=== PATIENT | male | born 1980 | race Caucasian/White ===

== ENCOUNTER → 2017-02-20 | Outpatient (CLI) | payer MEDICAID ==
[2017-02-20 10:03] VITALS: BP 161/96; PULSE 79; RESP 16; TEMP 99.2; BMI 45.1
[2017-02-20 12:13] LABS: CH 27.8; HCT 47.3 % (39.0-53.0); HDW 2.75; HGB 16.2 gm/dL (13.0-17.5); MCH 28.1 pg (25.0-35.0); MCHC 34.2 g/dL (31.0-37.0); MCV 82.1 fL (80.0-100.0); Mean Platelet Volume 7.7; RBC 5.76 m/uL (4.30-5.90); RDW 12.8 % (11.5-15.5)
[2017-02-20 12:18] LABS: ALT 70 U/L (21-72); AST 28 U/L (17-59); Alkaline Phosphatase 81 U/L (38-126); Anion Gap 12 mmol/L; Blood Urea Nitrogen 13 mg/dL (9-20); Calcium 9.8 mg/dL (8.4-10.2); Carbon Dioxide 25 mmol/L (22-30); Chloride 105 mmol/L (98-107); Cholesterol 196 mg/dL (<200); Glucose 100 mg/dL (74-99); HDL Cholesterol 44 mg/dL (40-60); Iron 83 ug/dL (49-181); Non-African American GFR(MDRD) >60 (>60 ml/min/1.73 sqM); Potassium 4.6 mmol/L (3.5-5.1); Sodium 142 mmol/L (137-145); Total Bilirubin 0.6 mg/dL (0.2-1.3); Total Protein 7.5 g/dL (6.3-8.2)
[2017-02-20 12:27] LABS: % Iron Saturation 24.6 % (20-50); Total Iron Binding Capacity 338 ug/dL (261-462)
[2017-02-20 13:15] LABS: Vitamin B12 504 pg/mL (239-931)
[2017-02-20 18:42] LABS: Hemoglobin A1C 5.8 % (4.2-6.1)
[2017-02-24 11:38] LABS: Anabasine Urine <2.0 ng/mL (<2.0)
== END | disposition home or self-care (01) ==
LOC: BARWHC3 09:12
PROVIDERS: ATTEND Surgery Plastic and Reconstructive Surgery
DX: Z01.818 Encounter for other preprocedural examination (principal); E66.01 Morbid (severe) obesity due to excess calories; E89.1 Postprocedural hypoinsulinemia; D50.8 Other iron deficiency anemias; E44.0 Moderate protein-calorie malnutrition; E55.9 Vitamin D deficiency, unspecified; Z68.42 Body mass index [BMI] 45.0-49.9, adult; I11.9 Hypertensive heart disease without heart failure; G47.30 Sleep apnea, unspecified
CPT/HCPCS: 80053; 80061; 80323; 82306; 82607; 82728; 82746; 83036; 83540; 83550; 84425; 84443; 85027; 93005; 99201

== ENCOUNTER 2017-02-27 12:32 | Day surgery (SDC) | payer MEDICAID ==
[2017-02-25 14:26] VITALS: BMI 45.4
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
[~2017-02-27 12:32] MED LIST: LACTATED RINGERS 1,000 ML IV SCH
[2017-02-27 12:55] VITALS: RESP 16; TEMP 98.2
[2017-02-27] MEDS ORDERED: LIDOCAINE 1% 20 ML VIAL (10MG/ML) FOR IV START INTRADERMA ONE (13:10)
[2017-02-27 13:12] LABS: Glucose,Whole Blood 91 mg/dL (75-99)
[2017-02-27] MEDS ORDERED: PROPOFOL 10 MG/ML 20 ML VIAL IV ONE (13:25)
[2017-02-27] MEDS ORDERED: LIDOCAINE 1% INJ 10MG/ML (20 ML MDV) ONE (13:25)
[2017-02-27 14:03] VITALS: BP 143/97; PULSE 70
--- NOTE | 2017-02-27 14:03 | P.PCN ---
Date of Procedure: 02/27/17 Preoperative Diagnosis: Postoperative Diagnosis: Procedure(s) Performed: Implants: Indications for Procedure: Operative Findings: Description of Procedure: PREOPERATIVE DIAGNOSIS: Gastroesophageal reflux disease. Morbid obesity. POSTOPERATIVE DIAGNOSIS: Morbid obesity. Gastritis. Gastroesophageal reflux disease. Diaphragmatic hiatal hernia without obstruction. OPERATION: Esophagogastroduodenoscopy with biopsies along antrum. SURGEON: Lisy Andres MD ANESTHESIA: MAC. INDICATIONS: The patient is a 36-year-old female who presents with a history of reflux disease. Benefits and risks of the procedure were described. Informed consent was obtained. DESCRIPTION: The patient was brought into the endoscopy suite and laid in the left lateral decubitus position. An Olympus gastroscope was passed along the posterior oropharynx down to the distal esophagus where the squamocolumnar junction was encountered at 41 cm from the incisors. The stomach was entered and no bile reflux was found. Additional findings are listed below. Biopsies with cold forceps were obtained of the antrum. The first through third portion of the duodenum was examined and unremarkable. Retroflexion of the scope confirmed Hill grade 4 lower esophageal valve. The squamocolumnar junction LA grade C erosive esophagitis. The stomach was desufflated. The patient tolerated the procedure well. FINDINGS: Squamocolumnar junction 41 cm from the incisors. Diaphragmatic hiatus at 45 cm. Hiatal hernia 4 cm. Hill grade 4 lower esophageal valve. LA grade C erosive esophagitis. Superficial gastritis. No active duodenitis. RECOMMENDATIONS: Continue medical therapy. Further recommendations pending results of pathology report. Upper endoscopy as needed. Will benefit from antireflux surgical procedure Plan - Discharge Summary New Discharge Prescriptions: New Omeprazole 40 mg PO DAILY #90 capsule. No Action Varenicline [Chantix] 1 mg PO BID [facility] Discharge Medication List Omeprazole 40 mg PO AC-BRKFST 02/20/17 [History] Varenicline [Chantix] 1 mg PO BID 02/20/17 [History] Omeprazole 40 mg PO DAILY #90 capsule. 02/27/17 [Rx] Follow up Appointment(s)/Referral(s): Lisy Andres MD [STAFF PHYSICIAN] - 03/19/17 Patient Instructions/Handouts: *Surgery [facility] - (Anesthesia) Endoscopy Discharge Instructions, Upper Endoscopy (GEN), Hiatal Hernia (GEN), Gastroesophageal Reflux Disease (GEN) Discharge Disposition: HOME SELF-CARE
== END 2017-02-27 14:26 | disposition home or self-care (01) ==
LOC: ORWHC2ENDO 12:32
PROVIDERS: ATTEND Surgery Plastic and Reconstructive Surgery
DX: K21.0 Gastro-esophageal reflux disease with esophagitis (principal); K29.60 Other gastritis without bleeding; K44.9 Diaphragmatic hernia without obstruction or gangrene; E66.01 Morbid (severe) obesity due to excess calories; M19.90 Unspecified osteoarthritis, unspecified site; G47.33 Obstructive sleep apnea (adult) (pediatric); Z99.89 Dependence on other enabling machines and devices; Z79.899 Other long term (current) drug therapy; Z87.891 Personal history of nicotine dependence
CPT/HCPCS: 88305; 43239; J2001; J2704

== ENCOUNTER → 2017-02-27 | Outpatient (CLI) | payer MEDICAID ==
--- NOTE | 2017-02-27 13:11 | US ---
EXAMINATION TYPE: US gallbladder DATE OF EXAM: 02/27/2017 COMPARISON: NONE CLINICAL HISTORY: R10.11 RUQ Pain, R10.13 Epigastric Pain K80.00. RUQ and epigastric pain EXAM MEASUREMENTS: Liver Length: 17.9 cm Gallbladder Wall: 0.3 cm CBD: 0.5 cm Right Kidney: 12.5 x 5.3 x 5.2 cm Technical limitations due to patient's body habitus and large amount of overlying bowel content Pancreas: limited evaluation due to overlying bowel Liver: enlarged, attenuating, difficult to penetrate . There is coarsened, hyperechoic, and heteroge nous echotexture of the hepatic parenchyma most commonly related to hepatic steatosis, which limits e valuation for hepatic masses. Gallbladder: no evidence of stones as visualized Evidence for sonographic Renteria's sign: No CBD: appears wnl Right Kidney: no evidence of hydronephrosis or mass as visualized IMPRESSION: 1. Slightly limited exam secondary to overlying bowel gas however there is no evidence of acute mahesh cystitis or cholelithiasis. 2. Findings most compatible with hepatic steatosis, moderate in degree.
== END | disposition home or self-care (01) ==
LOC: RADUSWWP 12:06
PROVIDERS: ATTEND Surgery Plastic and Reconstructive Surgery
DX: R10.11 Right upper quadrant pain (principal); K80.20 Calculus of gallbladder without cholecystitis without obstruction
CPT/HCPCS: 76705

== ENCOUNTER → 2017-03-19 | Outpatient (CLI) | payer MEDICAID ==
[2017-03-19 14:27] VITALS: BP 160/92; PULSE 89; TEMP 98.2; BMI 44.9
--- NOTE | 2017-04-12 17:00 | P.PN ---
Progress Note - Text DATE OF CONSULTATION: 03/19/2017 REASON FOR VISIT: Morbid obesity. HISTORY OF PRESENT ILLNESS: Connor Pal is a 37-year-old gentleman who presents to the bariatric Center 1 month ago. As a result of his obesity, he had developed hypertension, prediabetes include obstructive sleep apnea. He has history of severe gastroesophageal reflux disease. He has completed both an upper and lower endoscopy. He doesn't a strong family history of gallbladder disease. He also reports fatty food intolerance. Since placement on omeprazole, his reflux disease has improved. He still pending completion of medical supervised weight loss. He is evaluating for the gastric bypass as an antireflux operation and for weight loss. At a height of 5 foot 10.25 inches, his ideal body weight is 173 pounds. Today he comes weighing 315 pounds. He has lost 2 pounds in 1 month. His body mass index is 44.9.. He is 142 pounds overweight. PAST MEDICAL HISTORY: 1. Morbid obesity. 2. Osteoarthritis of the bilateral knees. 3. Obstructive sleep apnea. 4. History of prediabetes. 5. History of lower back pain. 6. History of osteoarthritis of the bilateral ankles. 7. Previous history of closed head injury. PAST SURGICAL HISTORY: 1. Left knee ACL repair. MEDICATIONS: 1. Chantix 2. Omeprazole. ALLERGIES: Denies. SOCIAL HISTORY: Former smoker. FAMILY HISTORY: Pertinent for toxic megacolon. Has family history of esophageal cancer including gallbladder disease as well as gastroesophageal reflux disease. Has family history of hiatal hernia. History of morbid obesity. REVIEW OF SYSTEMS: CONSTITUTIONAL: No reports of fevers or chills. At a height of 5 foot 10.25 inches, his ideal body weight is 173 pounds. Today he comes weighing 317 pounds. His body mass index is 45.2. He is 163 pounds overweight. HEENT: Denies any active troubles with vision or hearing. ENDOCRINE: No reports of hypothyroidism. No reports of blood sugar glucose intolerance. RESPIRATORY: Has obstructive sleep apnea. No COPD or asthma. CARDIOVASCULAR: No reports of heart attacks or chest pain. History of hypertensive heart disease. GI: Denies any diarrhea, constipation, or blood in stools. Has severe gastroesophageal reflux disease. MUSCULOSKELETAL: Has diffuse joint pain involving the lower back, hips, knees, ankles. NEURO: No reports of seizure disorders. History of headaches. PSYCH: No reports of depression or suicidal ideation. SKIN: No skin cancers. No recent rash. HEMATOLOGIC: No family history of DVTs or pulmonary embolism. PHYSICAL EXAM: VITAL SIGNS: 5 feet 10.25 inch, 315 pounds, body mass index 44.9. Vital Signs Temp 98.2 F 03/19/17 14:38 Pulse 89 03/19/17 14:38 Resp BP 160/92 03/19/17 14:38 Pulse Ox GENERAL: Well-developed pleasant male in no acute distress. HEENT: No scleral icterus. Extraocular movements grossly intact. Moist buccal mucosa. No nasal drainage. Hears conversational speech. NECK: Supple without lymphadenopathy. No JVD distention. CHEST: Unlabored respirations with equal bilateral excursions. CARDIOVASCULAR: Regular rate and rhythm. Distal 2+ pulses. ABDOMEN: Obese, soft, nontender, nondistended. MUSCULOSKELETAL: 1+ pitting edema bilaterally. 5+/5 lower extremity strength. No clubbing or cyanosis. NEURO: No focal or lateralizing signs. Cranial nerves 2 through 12 grossly within normal limits. PSYCH: Appropriate affect. Alert and oriented to person, place and time. SKIN: Well perfused. Good skin turgor. EGD FINDINGS: Squamocolumnar junction 41 cm from the incisors. Diaphragmatic hiatus at 45 cm. Hiatal hernia 4 cm. Hill grade 4 lower esophageal valve. LA grade C erosive esophagitis. Superficial gastritis. No active duodenitis. LABS: Triglycerides were elevated at 280. Vitamin D was low 21.6. Hemoglobin A1c was normal at 5.8. Urine nicotine is negative for active tobacco. EKG: Normal sinus rhythm. US of abdomen: Results reviewed consistent with fatty liver disease. No large gallstones identified however limited study. ASSESSMENT: 1. Morbid obesity. 2. BMI 45.2 down to 44.9. 3. Tobacco cessation and counseling. 4. Gastroesophageal reflux disease. 5. Family history of gallbladder disease. 6. Family history of morbid obesity. 7. Epigastric abdominal pain. 8. Right upper quadrant abdominal pain. 9. Obstructive sleep apnea. 10. Fatty liver disease. 11. Hiatal hernia. 12. Dietary surveillance and counseling. PLAN: 1. He has a moderate size hiatal hernia and actually may benefit from repair as he symptomatic. 2. Additionally, he has fatty food intolerance and he is still at risk for chronic cholecystitis. 3. He has family history of esophageal and stomach cancer, and as a result, close vigilance post procedure is recommended. 4. He is pending completion of medical supervised weight loss. 5. Recommend limited exposure to fatty greasy foods including highly acidic foods to decrease risks of symptoms. 6. Follow-up in the [facility] May 2017.
== END ==
LOC: BARWHC3 13:52
PROVIDERS: ATTEND Surgery Plastic and Reconstructive Surgery
DX: E66.01 Morbid (severe) obesity due to excess calories (principal); K21.9 Gastro-esophageal reflux disease without esophagitis; G47.33 Obstructive sleep apnea (adult) (pediatric); K76.0 Fatty (change of) liver, not elsewhere classified; K44.9 Diaphragmatic hernia without obstruction or gangrene; Z68.41 Body mass index [BMI] 40.0-44.9, adult; Z79.899 Other long term (current) drug therapy; Z87.891 Personal history of nicotine dependence
CPT/HCPCS: 99211

== ENCOUNTER → 2017-05-19 | Outpatient (CLI) | payer MEDICAID ==
[2017-05-19 11:55] VITALS: BMI 45.0
== END | disposition home or self-care (01) ==
LOC: BARWHC3 08:53
PROVIDERS: ATTEND Surgery
DX: E66.01 Morbid (severe) obesity due to excess calories (principal)
CPT/HCPCS: 97804

== ENCOUNTER → 2017-05-21 | Outpatient (CLI) | payer MEDICAID ==
[2017-05-21 16:22] VITALS: BP 145/96; PULSE 93; RESP 16; TEMP 98; BMI 45.2
--- NOTE | 2017-07-14 20:53 | P.PN ---
Subjective Progress Note Date: 05/21/17 DATE OF SERVICE: 05/21/2017 REASON FOR VISIT: Morbid obesity. HISTORY OF PRESENT ILLNESS: Connor Pal is a 37-year-old gentleman with morbid obesity. He has developed hypertension, glucose intolerance, and obstructive sleep apnea. He has history of severe gastroesophageal reflux disease. He reports fatty food intolerance and family history of gallbladder disease. Since placement on omeprazole, his reflux disease has improved. He is evaluating for the gastric bypass as an antireflux operation and for weight loss. At a height of 5 foot 10.25 inches, his ideal body weight is 173 pounds. Today he comes weighing 317 pounds. He has gained 2 pounds in 1.5 months. His body mass index is 45.2. He is 144 pounds overweight. PAST MEDICAL HISTORY: 1. Morbid obesity. 2. Osteoarthritis of the bilateral knees. 3. Obstructive sleep apnea. 4. History of prediabetes. 5. History of lower back pain. 6. History of osteoarthritis of the bilateral ankles. 7. Previous history of closed head injury. 8. Hypertensive heart disease. PAST SURGICAL HISTORY: 1. Left knee ACL repair. 2. Esophagogastroduodenoscopy. 3. Colonoscopy. MEDICATIONS: 1. Chantix 2. Omeprazole. ALLERGIES: Denies. SOCIAL HISTORY: Former smoker. FAMILY HISTORY: Pertinent for toxic megacolon. Has family history of esophageal cancer including gallbladder disease as well as gastroesophageal reflux disease. Has family history of hiatal hernia. History of morbid obesity. REVIEW OF SYSTEMS: CONSTITUTIONAL: No reports of fevers or chills. At a height of 5 foot 10.25 inches, his ideal body weight is 173 pounds. Today he comes weighing 317 pounds. His body mass index is 45.2. He is 144 pounds overweight. HEENT: Denies any active troubles with vision or hearing. ENDOCRINE: No reports of hypothyroidism. No reports of blood sugar glucose intolerance. RESPIRATORY: Has obstructive sleep apnea. No COPD or asthma. CARDIOVASCULAR: No reports of heart attacks or chest pain. History of hypertensive heart disease. GI: Denies any diarrhea, constipation, or blood in stools. Has severe gastroesophageal reflux disease. MUSCULOSKELETAL: Has diffuse joint pain involving the lower back, hips, knees, ankles. NEURO: No reports of seizure disorders. History of headaches. PSYCH: No reports of depression or suicidal ideation. SKIN: No skin cancers. No recent rash. HEMATOLOGIC: No family history of DVTs or pulmonary embolism. PHYSICAL EXAM: VITAL SIGNS: 5 feet 10.25 inch, 317 pounds, body mass index 45.2. Vital Signs Temp 98 F 05/21/17 16:19 Pulse 93 05/21/17 16:19 Resp 16 05/21/17 16:19 BP 145/96 05/21/17 16:19 Pulse Ox GENERAL: Well-developed pleasant male in no acute distress. HEENT: No scleral icterus. Extraocular movements grossly intact. Moist buccal mucosa. No nasal drainage. Hears conversational speech. NECK: Supple without lymphadenopathy. No JVD distention. CHEST: Unlabored respirations with equal bilateral excursions. CARDIOVASCULAR: Regular rate and rhythm. Distal 2+ pulses. ABDOMEN: Obese, soft, nontender, nondistended. MUSCULOSKELETAL: 5+/5 lower extremity strength. No clubbing or cyanosis. NEURO: No focal or lateralizing signs. Cranial nerves 2 through 12 grossly within normal limits. PSYCH: Appropriate affect. Alert and oriented to person, place and time. SKIN: Well perfused. Good skin turgor. EGD FINDINGS: Squamocolumnar junction 41 cm from the incisors. Diaphragmatic hiatus at 45 cm. Hiatal hernia 4 cm. Hill grade 4 lower esophageal valve. LA grade C erosive esophagitis. LABS: Triglycerides were elevated at 280. Vitamin D was low 21.6. Hemoglobin A1c was normal at 5.8. Urine nicotine is negative for active tobacco. EKG: Normal sinus rhythm. US of abdomen: Results reviewed consistent with fatty liver disease. No large gallstones identified however limited study. ASSESSMENT: 1. Morbid obesity. 2. BMI 45.2 3. Hypertensive heart disease. 4. Gastroesophageal reflux disease. 5. Family history of gallbladder disease. 6. Family history of morbid obesity. 7. Epigastric abdominal pain. 8. Right upper quadrant abdominal pain. 9. Obstructive sleep apnea. 10. Fatty liver disease. 11. Hiatal hernia. 12. Dietary surveillance and counseling. 13. Chronic cholecystitis. PLAN: 1. Recommend continue with omeprazole for esophageal reflux disease. 2. Recommend 2 week protein diet for fatty liver disease. 3. The [place] bariatric surgical collaborative data was reviewed in detail including benefits and risks between band, bypass, sleeve gastrectomy. 4. Recommend cholecystectomy at the time of her bariatric procedure. 5. A second generation bariatric consent form was reviewed in detail including leaks, bleeding, nutritional deficiencies and need for additional procedures. 6. Inpatient hospitalization more than 2 nights. 7. DVT prophylaxis. 8. Antibiotic prophylaxis. Objective - Vital Signs Vital signs: Vital Signs Temp 98 F 05/21/17 16:19 Pulse 93 05/21/17 16:19 Resp 16 05/21/17 16:19 BP 145/96 05/21/17 16:19 Pulse Ox Intake & Output 05/20/17 05/21/17 05/21/17 18:59 06:59 18:59 Weight 144.016 kg
== END | disposition home or self-care (01) ==
LOC: BARWHC3 15:40
PROVIDERS: ATTEND Surgery Plastic and Reconstructive Surgery
DX: E66.01 Morbid (severe) obesity due to excess calories (principal); I11.9 Hypertensive heart disease without heart failure; K21.9 Gastro-esophageal reflux disease without esophagitis; G47.33 Obstructive sleep apnea (adult) (pediatric); K76.0 Fatty (change of) liver, not elsewhere classified; K81.1 Chronic cholecystitis; Z71.3 Dietary counseling and surveillance; Z68.42 Body mass index [BMI] 45.0-49.9, adult; Z87.891 Personal history of nicotine dependence; Z98.890 Other specified postprocedural states
CPT/HCPCS: 99211

== ENCOUNTER → 2017-09-03 | Outpatient (CLI) | payer MEDICAID ==
[2017-09-03 16:42] VITALS: BP 139/86; PULSE 76; RESP 16; TEMP 98.4; BMI 44.2
--- NOTE | 2017-11-06 16:23 | P.PN ---
Subjective Progress Note Date: 09/03/17 DATE OF SERVICE: 09/03/2017 REASON FOR VISIT: Morbid obesity HISTORY OF PRESENT ILLNESS: Connor Pal is a 37-year-old gentleman with morbid obesity. As a result of his obesity, he has developed sleep apnea, osteoarthritis and hypertensive heart disease. He initially complained of severe gastroesophageal reflux disease. He reports resolution of his gastroesophageal reflux disease. He also reports intolerance to fatty foods. He comes in for evaluation for the gastric bypass. At a height of 5 foot 10.25 inches, his ideal body weight is 173 pounds. Today he comes weighing 310 pounds. He has lost 7 pounds in 3 months. His body mass index is reduced from 45.2 to 44.2. He is 147 pounds overweight. PAST MEDICAL HISTORY: 1. Morbid obesity. 2. Osteoarthritis of the bilateral knees. 3. Obstructive sleep apnea. 4. History of prediabetes. 5. History of lower back pain. 6. History of osteoarthritis of the bilateral ankles. 7. Previous history of closed head injury. 8. Hypertensive heart disease. PAST SURGICAL HISTORY: 1. Left knee ACL repair. 2. Esophagogastroduodenoscopy. 3. Colonoscopy. MEDICATIONS: 1. Chantix 2. Omeprazole. ALLERGIES: Denies. SOCIAL HISTORY: Former smoker. FAMILY HISTORY: Pertinent for toxic megacolon. Has family history of esophageal cancer including gallbladder disease as well as gastroesophageal reflux disease. Has family history of hiatal hernia. History of morbid obesity. REVIEW OF SYSTEMS: CONSTITUTIONAL: No reports of fevers or chills. At a height of 5 foot 10.25 inches, his ideal body weight is 173 pounds. Today he comes weighing 308 pounds. He has lost 7 pounds in 3 months. His body mass index is reduced from 45.2 to 44.2. He is 147 pounds overweight. HEENT: Denies any active troubles with vision or hearing. ENDOCRINE: No reports of hypothyroidism. No reports of blood sugar glucose intolerance. RESPIRATORY: Has obstructive sleep apnea. No COPD or asthma. CARDIOVASCULAR: No reports of heart attacks or chest pain. History of hypertensive heart disease. GI: Denies any diarrhea, constipation, or blood in stools. Has severe gastroesophageal reflux disease now improved with weight loss. Reports fatty food intolerance. MUSCULOSKELETAL: Has diffuse joint pain involving the lower back, hips, knees, ankles. NEURO: No reports of seizure disorders. History of headaches. PSYCH: No reports of depression or suicidal ideation. SKIN: No skin cancers. No recent rash. HEMATOLOGIC: No family history of DVTs or pulmonary embolism. PHYSICAL EXAM: VITAL SIGNS: 5 feet 10.25 inch, 310 pounds, body mass index 45.2. Vital Signs Temp 98.4 F 09/03/17 16:39 Pulse 76 09/03/17 16:39 Resp 16 09/03/17 16:39 BP 139/86 09/03/17 16:39 Pulse Ox GENERAL: Well-developed pleasant male in no acute distress. HEENT: No scleral icterus. Extraocular movements grossly intact. Moist buccal mucosa. No nasal drainage. Hears conversational speech. NECK: Supple without lymphadenopathy. No JVD distention. CHEST: Unlabored respirations with equal bilateral excursions. CARDIOVASCULAR: Regular rate and rhythm. Distal 2+ pulses. ABDOMEN: Obese, soft, nontender, nondistended. MUSCULOSKELETAL: 5+/5 lower extremity strength. No clubbing or cyanosis. NEURO: No focal or lateralizing signs. Cranial nerves 2 through 12 grossly within normal limits. PSYCH: Appropriate affect. Alert and oriented to person, place and time. SKIN: Well perfused. Good skin turgor. ASSESSMENT: 1. Morbid obesity. 2. BMI 45.2 down to 44.2 3. Hypertensive heart disease. 4. Gastroesophageal reflux disease, improved. 5. Family history of gallbladder disease. 6. Family history of morbid obesity. 7. Epigastric abdominal pain. 8. Right upper quadrant abdominal pain. 9. Obstructive sleep apnea. 10. Fatty liver disease. 11. Hiatal hernia. 12. Dietary surveillance and counseling. 13. Chronic cholecystitis. PLAN: 1. Bariatric options between a sleeve, band and a Dorcas-en-Y gastric bypass were reviewed in detail. He elected for a bypass versus possible sleeve gastrectomy. Robotic assisted approach described. 2. The [place] [facility] Collabor[facility] Data was also reviewed with benefits and risks as described. 3. An 8 page second-generation bariatric consent form was reviewed in detail including potential of bleeding, infection, leaks, adequate weight loss, nutritional deficiencies which he demonstrated understanding of the risks. 4. A 2 week high-protein low caloric 800 kcal diet described to address hepatomegaly. 5. Preoperative labs including complete metabolic panel and CBC with type and screen recommended. 6. DVT prophylaxis per [place] bariatric surgery collaborative. 7. Antibiotic prophylaxis. 8. Inpatient hospitalization anticipated for more than 2 nights. 9. All questions and concerns were addressed with the patient. 10. Recommended dietary classes. 11. Possible cholecystectomy was also described should he develop acute cholecystitis. Objective - Vital Signs Vital signs: Vital Signs Temp 98.4 F 09/03/17 16:39 Pulse 76 09/03/17 16:39 Resp 16 09/03/17 16:39 BP 139/86 09/03/17 16:39 Pulse Ox Intake & Output 09/02/17 09/03/17 09/03/17 18:59 06:59 18:59 Weight 140.812 kg
== END | disposition home or self-care (01) ==
LOC: BARWHC3 15:47
PROVIDERS: ATTEND Surgery Plastic and Reconstructive Surgery
DX: E66.01 Morbid (severe) obesity due to excess calories (principal); I11.9 Hypertensive heart disease without heart failure; I50.9 Heart failure, unspecified; K21.9 Gastro-esophageal reflux disease without esophagitis; Z83.79 Family history of other diseases of the digestive system; Z84.89 Family history of other specified conditions; R10.13 Epigastric pain; R10.11 Right upper quadrant pain; G47.33 Obstructive sleep apnea (adult) (pediatric); K76.0 Fatty (change of) liver, not elsewhere classified; K44.9 Diaphragmatic hernia without obstruction or gangrene; Z71.3 Dietary counseling and surveillance; K81.1 Chronic cholecystitis; Z68.41 Body mass index [BMI] 40.0-44.9, adult; Z87.891 Personal history of nicotine dependence; Z79.899 Other long term (current) drug therapy
CPT/HCPCS: 99211

== ENCOUNTER → 2017-09-24 | Outpatient (CLI) | payer MEDICAID ==
[2017-09-24 14:09] LABS: Basophils % (A) 1 %; Eosinophils # (A) 0.1 k/uL (0-0.7); Eosinophils % (A) 2 %; HCT 46.4 % (39.0-53.0); HGB 15.7 gm/dL (13.0-17.5); Lymphocytes % (A) 28 %; MCH 27.3 pg (25.0-35.0); MCHC 33.9 g/dL (31.0-37.0); MCV 80.5 fL (80.0-100.0); Mean Platelet Volume 7.8; Monocytes # (A) 0.4 k/uL (0-1.0); Monocytes % (A) 5 %; Neutrophils # (A) 4.4 k/uL (1.3-7.7); Neutrophils % (A) 62 %; Platelet Count 201 k/uL (150-450); RBC 5.76 m/uL (4.30-5.90); RDW 13.1 % (11.5-15.5); WBC 7.1 k/uL (3.8-10.6)
[2017-09-24 14:35] LABS: ALT 75 U/L (21-72); AST 38 U/L (17-59); Albumin 4.6 g/dL (3.5-5.0); Alkaline Phosphatase 73 U/L (38-126); Anion Gap 12 mmol/L; Blood Urea Nitrogen 22 mg/dL (9-20); Calcium 9.9 mg/dL (8.4-10.2); Carbon Dioxide 29 mmol/L (22-30); Chloride 100 mmol/L (98-107); Glucose 96 mg/dL (74-99); Potassium 3.9 mmol/L (3.5-5.1); Sodium 141 mmol/L (137-145); Total Bilirubin 0.5 mg/dL (0.2-1.3); Total Protein 7.4 g/dL (6.3-8.2)
== END | disposition home or self-care (01) ==
LOC: LABPAT 13:33
PROVIDERS: ATTEND Surgery Plastic and Reconstructive Surgery
DX: Z01.812 Encounter for preprocedural laboratory examination (principal); I10 Essential (primary) hypertension
CPT/HCPCS: 36415; 80053; 85025

== ENCOUNTER 2017-10-01 12:51 | Inpatient (IN) | payer MEDICAID ==
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
[~2017-10-01 12:51] MED LIST changes: +CHLORHEXIDINE GLUCONATE 15 ML CUP MUCOUS MEM ONE; +ENOXAPARIN 40 MG/0.4 ML SYRINGE SQ STA; +HYDROmorphone 0.5 MG/0.5 ML SYRINGE IVP PRN; -LACTATED RINGERS 1,000 ML IV SCH; +ONDANSETRON 4 MG/2 ML VIAL IVP PRN; +PANTOPRAZOLE 40 MG/10 ML VIAL IV STA; +SCOPOLAMINE 1.5MG/72HR PATCH TRANSDERM SCH
[2017-10-01 13:58] LABS: Glucose,Whole Blood 90 mg/dL (75-99)
[2017-10-01] MEDS: LACTATED RINGERS 1,000 ML IV SCH ×2 (14:00→20:42)
[2017-10-01] MEDS ORDERED: LIDOCAINE 1% 20 ML VIAL (10MG/ML) FOR IV START INTRADERMA ONE ×2 (14:01)
[2017-10-01] MEDS ORDERED: DEXAMETHASONE SOD PHOSPHATE 10 MG/ML 1 ML VIAL IV ONE (14:03)
[2017-10-01] MEDS ORDERED: PROPOFOL 10 MG/ML 20 ML VIAL IV ONE (16:23)
[2017-10-01] MEDS ORDERED: MIDAZOLAM 2 MG/2 ML VIAL ONE (16:23)
[2017-10-01] MEDS ORDERED: fentaNYL (PF) 50 MCG/ML 2 ML AMP ONE (16:23)
[2017-10-01] MEDS ORDERED: ROCURONIUM BROMIDE 10 MG/ML 10 ML VIAL IV ONE (16:23)
[2017-10-01] MEDS ORDERED: NEOSTIGMINE 1 MG/ML 10 ML VIAL ONE (16:23)
[2017-10-01] MEDS ORDERED: SUCCINYLCHOLINE CHLORIDE VIAL 200 MG/10 ML VIAL IV ONE (16:23)
[2017-10-01] MEDS ORDERED: HYDROmorphone (PF) 1 MG/ML ONE (16:23)
[2017-10-01] MEDS ORDERED: LIDOCAINE 1% INJ 10MG/ML (20 ML MDV) ONE (16:23)
[2017-10-01] MEDS ORDERED: GLYCOPYRROLATE 0.2 MG/ML 2 ML VIAL ONE (16:23)
[2017-10-01] MEDS ORDERED: BUPIVACAINE (PF) 0.25% 30 ML VIAL SQ ONE (16:49)
[2017-10-01] MEDS ORDERED: LACTATED RINGERS 1,000 ML IV ONE (18:21)
[2017-10-01] MEDS ORDERED: NALOXONE 0.4 MG/ML 1 ML VIAL IV PRN (18:40)
[2017-10-01] MEDS ORDERED: HYDROcodone/APAP 15 ML SOLUTION PO PRN (18:40)
[2017-10-01] MEDS ORDERED: ONDANSETRON 4 MG/2 ML VIAL IVP PRN (18:40)
[2017-10-01] MEDS ORDERED: diphenhydrAMINE 50 MG/ML 1 ML VIAL IVP PRN (18:40)
--- NOTE | 2017-10-01 18:40 | P.PCN ---
Date of Procedure: 10/01/17 Preoperative Diagnosis: Morbid obesity Postoperative Diagnosis: Same Procedure(s) Performed: Robotic sleeve gastrectomy, 40-Irish bougie Anesthesia: GETA, local Surgeon: Lisy Andres Estimated Blood Loss (ml): 10 Pathology: other (Sleeve gastrectomy) Condition: stable Disposition: floor Description of Procedure: 1. Stomach 30cm x 6 cm 2. Total of 8 - 45 mm krzysztof: 2 blues, 6 greens. 3. Negative leak test. 4. Console time 56 minutes
--- NOTE | 2017-10-01 18:54 | P.OP ---
Date of Procedure: 10/01/17 Description of Procedure: SURGEON: KWAME LANDIS MD STENCIL INSPECTOR: 1. CONNIE DUKE PREOPERATIVE DIAGNOSES: 1. Morbid obesity. 2. BMI 45.2 to 41.9. 3. Hypertensive heart disease. 4. Gastroesophageal reflux disease. 5. Family history of gallbladder disease. 6. Family history of morbid obesity. 7. Obstructive sleep apnea. 8. Fatty liver disease. 9. Hiatal hernia. 10. Dietary surveillance and counseling. POSTOPERATIVE DIAGNOSES: 1. Morbid obesity. 2. BMI 45.2 to 41.9. 3. Hypertensive heart disease. 4. Gastroesophageal reflux disease. 5. Family history of gallbladder disease. 6. Family history of morbid obesity. 7. Obstructive sleep apnea. 8. Fatty liver disease. 9. Hiatal hernia. 10. Dietary surveillance and counseling. OPERATION: 1. Robotic assisted daVinci Xi laparoscopic sleeve gastrectomy with 40-Mauritanian bougie, multiport. 2. Intraoperative esophagogastroduodenoscopy. ANESTHESIA: Gen. local anesthetic ESTIMATED BLOOD LOSS: 10 mL SPECIMENS REMOVED: Sleeve gastrectomy COMPLICATIONS: None. INDICATIONS: Connor Pal is a 37-year-old gentleman with morbid obesity. He has developed hypertension, glucose intolerance, and obstructive sleep apnea. He has history of severe gastroesophageal reflux disease now improved the last 4 months. He reports fatty food intolerance and family history of gallbladder disease. Since placement on omeprazole, his reflux disease has improved. He is evaluating for the sleeve gastrectomy despite his history of reflux. At a height of 5 foot 10.25 inches, his ideal body weight is 173 pounds. Today he comes after 22 pound weight loss from 317 pounds to 293 pounds. His body mass index was 45.2. All surgical options for morbid obesity had been described using the [place] bariatric surgery collaborative comorbidity resolution including complication risk score. A second-generation bariatric consent form was described in detail including the possibility of protein malnutrition, leaks , gastrojejunal stricture, venous thrombosis, gastroesophageal reflux disease, need for further surgery for which she demonstrated understanding. Benefits and risks of the procedure were described at length. Informed consent was obtained. DESCRIPTION: The patient was brought into the operating room theater. He was placed on a split leg table. Preoperatively he had received Lovenox subcutaneously for DVT prophylaxis. Additionally he had Peridex oral solution as an oral decontaminant. After general induction, the abdomen was prepped and draped in standard sterile fashion. The patient had previously voided prior to coming to the operating room. An Ioban draping was placed along the abdomen. Herr catheter was avoided. A robotic da Abimael Xi system was prepped and primed. The xiphoid to umbilicus measured 18 cm. At 15 cm from the xiphoid, proposed port sites were marked with indelible marker along the anterior axillary line bilaterally, mid axillary line bilaterally with each ports were marked 10 to 15 cm from each other. The carpenter assistant installer port was marked along the left lateral abdominal wall. The robotic stapler port was marked for the right midclavicular line. A 5 mm 0 degrees laparoscopic trocar entry was performed along the left upper quadrant. The abdomen was insufflated to 15 mmHg pressure he tolerated well. Diagnostic laparoscopy demonstrated no injury to bowel, viscera, or mesentery. The liver surface was unremarkable. The liver edge was slightly round consistent with fatty liver disease. No injury had occurred to the small bowel or viscera. Along the hiatus no evidence of large prominent hiatal hernia was encountered. A 12 mm port was placed along the left upper abdominal wall after exchanging the 5 mm port. A separate 8 mm port was placed along the left lateral abdominal wall. Please note that the ports were placed at least 20 cm away from the target anatomy. Care was taken to check each robotic arms were safely away from collision with the bed or the patient. At the epigastrium, a median sized Bonnie liver retractor was placed under direct visualization with the Iron Escalator Operator placed under the right shoulder of the patient. Next, 12-mm robot stapler port was placed along the right upper quadrant. The camera 8-mm port was maintained along the epigastrium, The patient was repositioned in reverse Trendelenburg position at 14-degrees after lowering the bed. The robot was docked along the left side of the patient. Using a grasper for arm 3, a veseel sealer for arm 2, including grasper for arm 1, the robotic system was docked and primed as described. Instruments were interchanged by the carpenter assistant installer for stapler loads. The camera was placed at 30-degrees down. I had sat at the console. The pylorus was identified and 6 cm proximally along the greater curvature of the stomach, the short gastrics were mobilized upwards to the angle of His using a vessel sealer. Hemostasis was excellent during this portion of the procedure. Next, the upper pole of the stomach was adherent to the left claire, which was gently dissected free using atraumatic grasper. Moderate redundancy of the posterior upper pole of the stomach was identified. The nursing machine try out setter placed a 40-Mauritanian blunted bougie into the stomach. Robotic stapler green loads 45 mm x 6, followed by blue 45 mm x 2 loads were used to create the sleeve. Initial firing was across the antrum of the stomach towards the angle of His. The staple line was completely hemostatic and linear without corkscrewing. Hemostasis was excellent. The space from the angularis incisura of the sleeve was approximately 4 cm. I then went to the head of the bed to perform the intraoperative esophagogastroduodenoscopy leak test. The upper pole of the stomach was bathed using normal saline solution. The scope was withdrawn with careful inspection along the staple line for which no leaks were found along the entire length. Additionally, the sleeve was completely hemostatic without any encroachment along the angularis incisura. Its topology was a straight tube. No stricture was encountered upon placement of the scope. The GI tract was desufflated. The patient tolerated this portion of the procedure well. The scope was completely withdrawn. The robot was undocked. I then rescrubbed into case, whereby the irrigation fluid was aspirated from the abdominal cavity. Tisseel fibrin sealant was placed along the entire staple length. Once dried the Bonnie liver retractor was removed. Attention was now brought to removal of the specimen. The distal end of the sleeve gastrectomy specimen was brought out through the 12 mm port at the left upper quadrant. The specimen was gently removed en total , corresponding to 30 cm x 6 cm sleeve gastrectomy specimen. No contamination had occurred during this process. All instruments and pneumoperitoneum including irrigation fluid was removed from the abdominal cavity. The 12 mm port site was irrigated with warm normal saline solution and diluted hydron peroxide. The 12-mm port site was reapproximated using 0 Vicryl and Oscar-Evie of the left upper quadrant. The final incisions were closed using subcuticular interrupted suture of 4-0 Monocryl. Dermabond was applied to the skin once the skin had been cleansed. OptiFoam dressing was placed along the stomach extraction site. At the end of the procedure, needle, sponge, and instrument count was verified correct by the surgical tech. The patient was taken to the postanesthesia care unit in stable condition. He had tolerated the procedure well. Intraoperative films and findings were reviewed with the patient's family. FINDINGS: 1. Negative intraoperative esophagogastrojejunoscopy leak test. 2. No hepatomegaly or large hiatus hernia. 3. Total of 8 staplers used including 6 - 45 mm green robot krzysztof and 2 - 45 mm blue robot loads used to create the gastric sleeve. 4. Xiphoid to umbilicus of 18 cm. 5. Moderate redundant upper posterior pole of the stomach.
[2017-10-01] MEDS: fentaNYL (PF) 50 MCG/ML 2 ML AMP IVP ONE ×2 (19:08→19:17)
[2017-10-01] MEDS ORDERED: ACETAMINOPHEN IV (For NPO) 1,000 MG in EMPTY BAG 1 BAG IVPB ONE (19:30)
[2017-10-01] MEDS: MORPHINE SULFATE/PF 10MG/10ML VL IVP PRN (20:22)
[2017-10-01] MEDS: 0.9% NACL WITH KCL 20 MEQ/L 1,000 ML IV SCH (21:53)
[2017-10-01] MEDS: ALBUTEROL NEBULIZED 2.5 MG/3 ML INHALATION SCH (23:35)
[2017-10-02] MEDS: AMPICILLIN-SULBACTAM 3 GM in SODIUM CHLORIDE 0.9% 100 ML IVPB SCH ×2 (00:34→05:36)
[2017-10-02] MEDS: SIMETHICONE 40 MG/0.6 ML DROPS 2,000 MG/30 ML BOTTLE PO SCH ×2 (00:35→05:36)
[2017-10-02] MEDS: HYOSCYAMINE ORAL DROPS 1.875 MG/15 ML BOTTLE PO SCH ×2 (00:35→05:36)
[2017-10-02] MEDS: METOCLOPRAMIDE 5 MG/ML 2 ML VIAL IVP SCH ×2 (00:58→05:35)
[2017-10-02] MEDS: MORPHINE SULFATE/PF 10MG/10ML VL IVP PRN ×2 (00:59→05:36)
[2017-10-02] MEDS: 0.9% NACL WITH KCL 20 MEQ/L 1,000 ML IV SCH (04:45)
[2017-10-02 06:49] LABS: Basophils % (A) 0 %; Eosinophils % (A) 0 %; HCT 41.7 % (39.0-53.0); HGB 14.5 gm/dL (13.0-17.5); Lymphocytes # (A) 1.2 k/uL (1.0-4.8); Lymphocytes % (A) 11 %; MCH 27.9 pg (25.0-35.0); MCHC 34.9 g/dL (31.0-37.0); MCV 79.9 fL (80.0-100.0); Mean Platelet Volume 7.4; Monocytes # (A) 0.7 k/uL (0-1.0); Monocytes % (A) 7 %; Neutrophils # (A) 8.6 k/uL (1.3-7.7); Neutrophils % (A) 79 %; Platelet Count 244 k/uL (150-450); RBC 5.22 m/uL (4.30-5.90); RDW 13.2 % (11.5-15.5); WBC 10.8 k/uL (3.8-10.6)
[2017-10-02 07:19] LABS: Anion Gap 12 mmol/L; Blood Urea Nitrogen 15 mg/dL (9-20); Calcium 8.7 mg/dL (8.4-10.2); Carbon Dioxide 22 mmol/L (22-30); Chloride 106 mmol/L (98-107); Magnesium 1.8 mg/dL (1.6-2.3); Phosphorus 3.2 mg/dL (2.5-4.5); Potassium 3.6 mmol/L (3.5-5.1); Sodium 140 mmol/L (137-145)
[2017-10-02 07:58] VITALS: BP 116/58; TEMP 98.5
[2017-10-02] MEDS ORDERED: 1: MVI, ADULT NO.4 WITH VIT K 10 ML, THIAMINE 100 MG, FOLIC ACID 1 MG, POTASSIUM CHLORID IV SCH ×6 (08:00)
[2017-10-02 08:08] VITALS: RESP 18
[2017-10-02] MEDS: ALBUTEROL NEBULIZED 2.5 MG/3 ML INHALATION SCH (08:11)
[2017-10-02 08:19] VITALS: PULSE 98
[2017-10-02] MEDS ORDERED: ENOXAPARIN 40 MG/0.4 ML SYRINGE SQ SCH (09:00)
[2017-10-02] MEDS ORDERED: PANTOPRAZOLE 40 MG/10 ML VIAL IV SCH (09:00)
[2017-10-02] MEDS ORDERED: HYDROCHLOROTHIAZIDE 25 MG TAB PO SCH (09:00)
--- NOTE | 2017-10-02 09:03 | FL ---
EXAMINATION TYPE: FL UGI DATE OF EXAM: 10/02/2017 LIMITED UGI: CLINICAL HISTORY: That is post gastric sleeve. TECHNIQUE: Limited esophagram is performed utilizing 100 mL oz of Omnipaque 350. A total of 1.1 oziel te of fluoroscopic time was utilized during procedure. 42 fluoroscopic images were saved. COMPARISON: None. FINDINGS: The patient swallowed contrast without difficulty or delay. Esophageal peristalsis and mo tility are within normal limits. There is good flow of contrast along the diaphragmatic hiatus into proximal stomach and subsequent flow into gastric sleeve. There is good flow from distal sleeve into pylorus and duodenal sweep. Patient remains asymptomatic. There is no evidence of contrast extravasat ion to suggest leak. IMPRESSION: No evidence of leak or significant obstruction status post recent gastric sleeve surgery.
--- NOTE | 2017-10-02 09:54 | P.PN ---
Subjective Progress Note Date: 10/02/17 DATE OF SERVICE: 10/01/2017 HISTORY OF PRESENT ILLNESS: Connor Pal is a 37-year-old gentleman s/p sleeve gastrectomy. "I feel very good." No nausea, vomiting, or reflux! Pain is well controlled. Objective - Vital Signs Vital signs: Vital Signs Temp 98.5 F 10/02/17 07:57 Pulse 98 10/02/17 08:19 Resp 18 10/02/17 08:07 BP 116/58 10/02/17 07:57 Pulse Ox 94 L 10/02/17 08:39 Intake & Output 10/01/17 10/02/17 10/02/17 18:59 06:59 18:59 Intake Total 1700 3141 0 Output Total 10 450 Balance 1690 2691 0 Weight 133.3 kg Intake: IV 1700 150 Intake, IV Titration 2991 Amount 0.9% NaCl with KCl 20 Meq 2282 /l 1,000 ml @ 150 mls/hr IV .Q6H40M [facility] Rx#: [id number] ACETAMINOPHEN IV (For NPO 100 ) 1,000 mg In Empty Bag 1 bag @ 400 mls/hr IVPB ONCE ONE Rx#:[id number] Ampicillin-Sulbactam 3 gm 200 In Sodium Chloride 0.9% 100 ml @ 100 mls/hr IVPB Q6HR [facility] Rx#:[id number] Lactated Ringers 1,000 ml 409 As IV .STK-MED ONE Rx#: [id number] Oral 0 Output: Urine 450 Estimated Blood Loss 10 Other: Voiding Method Urinal Toilet Urinal # Voids 1 - Exam PHYSICAL EXAM: GENERAL: Well-developed pleasant male in no acute distress. HEENT: No scleral icterus. Extraocular movements grossly intact. Moist buccal mucosa. No nasal drainage. Hears conversational speech. NECK: Supple without lymphadenopathy. No JVD distention. CHEST: Unlabored respirations with equal bilateral excursions. CARDIOVASCULAR: Regular rate and rhythm. Distal 2+ pulses. ABDOMEN: Obese, soft, nontender, nondistended. Dressings clean, dry, and intact. MUSCULOSKELETAL: 5+/5 lower extremity strength. No clubbing or cyanosis. NEURO: No focal or lateralizing signs. Cranial nerves 2 through 12 grossly within normal limits. PSYCH: Appropriate affect. Alert and oriented to person, place and time. SKIN: Well perfused. Good skin turgor. - Labs CBC & Chem 7: 10/02/17 06:24 10/02/17 06:24 Labs: Abnormal Lab Results - Last 24 Hours (Table) 10/02/17 Range/Units 06:24 WBC 10.8 H (3.8-10.6) k/uL MCV 79.9 L (80.0-100.0) fL Neutrophils # 8.6 H (1.3-7.7) k/uL Assessment and Plan (1) BMI 40.0-44.9, adult Current Visit: Yes Status: Acute Code(s): Z68.41 - BODY MASS INDEX (BMI) 40.0-44.9, ADULT SNOMED Code(s): 496146281 (2) Sleep apnea Current Visit: Yes Status: Acute Code(s): G47.30 - SLEEP APNEA, UNSPECIFIED SNOMED Code(s): 84355556 (3) Hypertension Current Visit: Yes Status: Acute Code(s): I10 - ESSENTIAL (PRIMARY) HYPERTENSION SNOMED Code(s): 94795586 (4) Gastroesophageal reflux Current Visit: Yes Status: Acute Code(s): K21.9 - GASTRO-ESOPHAGEAL REFLUX DISEASE WITHOUT ESOPHAGITIS SNOMED Code(s): 352315019 (5) Morbid obesity Current Visit: Yes Status: Acute Code(s): E66.01 - MORBID (SEVERE) OBESITY DUE TO EXCESS CALORIES SNOMED Code(s): 000697066 Plan: ASSESSMENT: 1. Morbid obesity. 2. BMI 45.2 3. Hypertensive heart disease. 4. Gastroesophageal reflux disease. 5. Family history of gallbladder disease. 6. Family history of morbid obesity. 7. Epigastric abdominal pain. 8. Right upper quadrant abdominal pain. 9. Obstructive sleep apnea. 10. Fatty liver disease. 11. Hiatal hernia. 12. Dietary surveillance and counseling. PLAN: 1. Discharge home after diet. 2. Follow-up in bariatric center in 24 hrs. 3. Post discharge instructions reviewed.
--- NOTE | 2017-10-02 10:04 | P.DS ---
Providers Date of admission: 10/01/17 12:51 Expected date of discharge: 10/02/17 Attending physician: Lisy Andres Primary care physician: Stated None - Discharge Diagnosis(es) (1) BMI 40.0-44.9, adult Current Visit: Yes Status: Acute (2) Sleep apnea Current Visit: Yes Status: Acute (3) Hypertension Current Visit: Yes Status: Acute (4) Gastroesophageal reflux Current Visit: Yes Status: Acute (5) Morbid obesity Current Visit: Yes Status: Acute Hospital Course: POSTOPERATIVE DIAGNOSES: 1. Morbid obesity. 2. BMI 45.2 to 41.9. 3. Hypertensive heart disease. 4. Gastroesophageal reflux disease. 5. Family history of gallbladder disease. 6. Family history of morbid obesity. 7. Obstructive sleep apnea. 8. Fatty liver disease. 9. Hiatal hernia. 10. Dietary surveillance and counseling. COURSE: Connor Pal is a 37-year-old gentleman with morbid obesity. He has developed hypertension, glucose intolerance, and obstructive sleep apnea. He has history of severe gastroesophageal reflux disease now improved the last 4 months. He reports fatty food intolerance and family history of gallbladder disease. Since placement on omeprazole, his reflux disease has improved. He is evaluating for the sleeve gastrectomy despite his history of reflux. At a height of 5 foot 10.25 inches, his ideal body weight is 173 pounds. Today he comes after 22 pound weight loss from 317 pounds to 293 pounds. His body mass index was 45.2. All surgical options for morbid obesity had been described using the [place] bariatric surgery collaborative comorbidity resolution including complication risk score. A second-generation bariatric consent form was described in detail including the possibility of protein malnutrition, leaks , gastrojejunal stricture, venous thrombosis, gastroesophageal reflux disease, need for further surgery for which she demonstrated understanding. Post-procedure, his pain was well controlled. No reports of reflux and he was tolerating diet. Follow-up in the bariatric center in 24 hrs with discharge instructions reviewed. Pertinent Studies: Esophogram reviewed and without leaks Procedures: OPERATION: 1. Robotic assisted daVinci Xi laparoscopic sleeve gastrectomy with 40-Albanian bougie, multiport. 2. Intraoperative esophagogastroduodenoscopy. ANESTHESIA: Gen. local anesthetic ESTIMATED BLOOD LOSS: 10 mL SPECIMENS REMOVED: Sleeve gastrectomy COMPLICATIONS: None. Patient Condition at Discharge: Good Plan - Discharge Summary Discharge Rx Participant: Yes New Discharge Prescriptions: New Bisacodyl [Dulcolax] 5 mg PO DAILY PRN #10 tablet. PRN Reason: Constipation HYDROcodone/APAP [[place] Elixir 7.5-325Mg/15Ml] 15 ml PO Q6H PRN #480 solution PRN Reason: Pain Ondansetron Odt [Zofran Odt] 4 mg PO Q8HR PRN #9 tab PRN Reason: Nausea Simethicone 40 mg/0.6 ml Drops [Mylicon Drops] 40 mg PO PCHS PRN #30 ml PRN Reason: Gas No Action Omeprazole 40 mg PO AC-BRKFST Hydrochlorothiazide 25 mg PO DAILY Discharge Medication List Omeprazole 40 mg PO AC-BRKFST 02/20/17 [History] Hydrochlorothiazide 25 mg PO DAILY 05/22/17 [History] Bisacodyl [Dulcolax] 5 mg PO DAILY PRN #10 tablet. 10/02/17 [Rx] HYDROcodone/APAP [[place] Elixir 7.5-325Mg/15Ml] 15 ml PO Q6H PRN #480 solution [Rx] Ondansetron Odt [Zofran Odt] 4 mg PO Q8HR PRN #9 tab 10/02/17 [Rx] Simethicone 40 mg/0.6 ml Drops [Mylicon Drops] 40 mg PO PCHS PRN #30 ml [Rx] Follow up Appointment(s)/Referral(s): Bariatric Center,. [NON-STAFF] - 10/03/17 10:00 am Patient Instructions/Handouts: Nutrition after Bariatric Surgery (DC), Laparoscopic Sleeve Gastrectomy (DC) Activity/Diet/Wound Care/Special Instructions: No lifting over 4 pounds in 4 weeks. May shower. No bathtub soaks. Take omeprazole daily. Start protein shakes, October 04. Discharge Disposition: HOME SELF-CARE
[2017-10-02 10:11] VITALS: BMI 41.8
[2017-10-03] MEDS ORDERED: BISACODYL 5 MG TABLET.DR PO PRN (08:00)
== END 2017-10-02 11:30 | disposition home or self-care (01) | DRG 621 ==
LOC: 2ORMAIN 12:51 → 3SUR 19:02
PROVIDERS: ADMIT Surgery Plastic and Reconstructive Surgery; ATTEND Surgery Plastic and Reconstructive Surgery
PROC: 8E0W4CZ Robotic Assisted Procedure of Trunk Region, Percutaneous Endoscopic Approach (ICD-10-PCS; 2017-10-01)
PROC: 0DJ08ZZ Inspection of Upper Intestinal Tract, Via Natural or Artificial Opening Endoscopic (ICD-10-PCS; 2017-10-01)
PROC: 0DB64Z3 Excision of Stomach, Percutaneous Endoscopic Approach, Vertical (ICD-10-PCS; principal; 2017-10-01 15:10)
DX: E66.01 Morbid (severe) obesity due to excess calories (principal); I11.9 Hypertensive heart disease without heart failure; K76.0 Fatty (change of) liver, not elsewhere classified; E74.39 Other disorders of intestinal carbohydrate absorption; Z68.41 Body mass index [BMI] 40.0-44.9, adult; G47.33 Obstructive sleep apnea (adult) (pediatric); K21.9 Gastro-esophageal reflux disease without esophagitis; K44.9 Diaphragmatic hernia without obstruction or gangrene; M19.071 Primary osteoarthritis, right ankle and foot; M19.072 Primary osteoarthritis, left ankle and foot; M17.0 Bilateral primary osteoarthritis of knee; M54.5 Low back pain; R73.03 Prediabetes; Z71.3 Dietary counseling and surveillance; Z79.899 Other long term (current) drug therapy; Z87.891 Personal history of nicotine dependence; Z87.820 Personal history of traumatic brain injury; Z83.49 Family history of other endocrine, nutritional and metabolic diseases
CPT/HCPCS: 74240; 80051; 82310; 82565; 83735; 84100; 84520; 85025; 86850; 86900; 86901; 88307; 94640; 94760

== ENCOUNTER → 2017-10-03 | Outpatient (CLI) | payer MEDICAID ==
[2017-10-03 10:27] VITALS: BP 151/90; PULSE 74; TEMP 97.6; BMI 41.8
--- NOTE | 2017-11-07 15:57 | P.PN ---
Subjective Progress Note Date: 10/03/17 DATE OF SERVICE: 10/03/2017 REASON FOR VISIT: Status post sleeve gastrectomy HISTORY OF PRESENT ILLNESS: Connor Pal is a 37-year-old gentleman with morbid obesity. He status post sleeve gastrectomy 10/01/2017. He is postoperative day 2. No pain. No reflux. Doing well. He is tolerating liquids and diet. He is passing flatus. No fevers or chills. At a height of 5 foot 10.25 inches, his ideal body weight is 173 pounds. Highest weight 317 pounds. Today he comes in 293 pounds. He has lost 17 pounds in 1 month. His body mass index is reduced from 45.2 to 41.8. Lifetime weight loss is 24 pounds. Percent excess weight is 17%. He is 120 pounds overweight. PHYSICAL EXAM: VITAL SIGNS: 5 feet 10.25 inch, 293 pounds, body mass index 41.8. Vital Signs Temp 97.6 F 10/03/17 10:21 Pulse 74 10/03/17 10:21 Resp BP 151/90 10/03/17 10:21 Pulse Ox GENERAL: Well-developed pleasant male in no acute distress. HEENT: No scleral icterus. Extraocular movements grossly intact. Moist buccal mucosa. No nasal drainage. Hears conversational speech. NECK: Supple without lymphadenopathy. No JVD distention. CHEST: Unlabored respirations with equal bilateral excursions. CARDIOVASCULAR: Regular rate and rhythm. Distal 2+ pulses. ABDOMEN: Obese, soft, nontender, nondistended. Dressing discontinued. No cellulitis or infection. MUSCULOSKELETAL: 5+/5 lower extremity strength. No clubbing or cyanosis. NEURO: No focal or lateralizing signs. Cranial nerves 2 through 12 grossly within normal limits. PSYCH: Appropriate affect. Alert and oriented to person, place and time. SKIN: Well perfused. Good skin turgor. ASSESSMENT: 1. Morbid obesity. 2. BMI 45.2 down to 41.8. 3. Hypertensive heart disease. 4. Gastroesophageal reflux disease, improved. 5. Status post sleeve gastrectomy PLAN: 1. He is doing very well. Fluid intake 64 ounces daily. 2. Start protein shakes 75 g daily. 3. Follow-up in 2 weeks.
== END | disposition home or self-care (01) ==
LOC: BARWHC3 09:50
PROVIDERS: ATTEND Surgery Plastic and Reconstructive Surgery
DX: Z48.815 Encounter for surgical aftercare following surgery on the digestive system (principal); E66.01 Morbid (severe) obesity due to excess calories; Z68.41 Body mass index [BMI] 40.0-44.9, adult; I11.9 Hypertensive heart disease without heart failure; I50.9 Heart failure, unspecified; K21.9 Gastro-esophageal reflux disease without esophagitis; Z98.84 Bariatric surgery status
CPT/HCPCS: 99211

== ENCOUNTER → 2017-10-15 | Outpatient (CLI) | payer MEDICAID ==
[2017-10-15 16:56] VITALS: BP 122/79; PULSE 89; RESP 16; TEMP 98; BMI 39.6
--- NOTE | 2017-11-08 18:38 | P.PN ---
Subjective Progress Note Date: 10/15/17 DATE OF SERVICE: 10/15/2017 REASON FOR VISIT: Status post sleeve gastrectomy HISTORY OF PRESENT ILLNESS: Connor Pal is a 37-year-old gentleman with morbid obesity. He status post sleeve gastrectomy 10/01/2017. He is 2 weeks out. Reports mild pain along the pretibia of the left leg. Otherwise he is feeling great. He denies any esophageal reflux disease. Separately, he reports swelling along the right groin. He has no right upper quadrant abdominal pain. "I am happy with my weight loss." At a height of 5 foot 10.25 inches, his ideal body weight is 173 pounds. Highest weight 317 pounds. Today he comes in 278 pounds. He has lost 15 pounds since his last visit 2 weeks ago. His body mass index is reduced from 45.2 to 39.7. Lifetime weight loss is 39 pounds. Percent excess weight is 27% . He is 105 pounds overweight. PHYSICAL EXAM: VITAL SIGNS: 5 feet 10.25 inch, 278 pounds, body mass index 39.7. Vital Signs Temp 98 F 10/15/17 16:53 Pulse 89 10/15/17 16:53 Resp 16 10/15/17 16:53 BP 122/79 10/15/17 16:53 Pulse Ox GENERAL: Well-developed pleasant male in no acute distress. HEENT: No scleral icterus. Extraocular movements grossly intact. Moist buccal mucosa. No nasal drainage. Hears conversational speech. NECK: Supple without lymphadenopathy. No JVD distention. CHEST: Unlabored respirations with equal bilateral excursions. CARDIOVASCULAR: Regular rate and rhythm. Distal 2+ pulses. ABDOMEN: Obese, soft, nontender, nondistended. Dressing discontinued. No cellulitis or infection. MUSCULOSKELETAL: No clubbing or cyanosis. No edema. Tenderness along the pretibial area of the left lower leg. No calf tenderness. NEURO: No focal or lateralizing signs. Cranial nerves 2 through 12 grossly within normal limits. PSYCH: Appropriate affect. Alert and oriented to person, place and time. SKIN: Well perfused. Good skin turgor. ASSESSMENT: 1. Morbid obesity. 2. BMI 45.2 down to 39.7. 3. Hypertensive heart disease. 4. Gastroesophageal reflux disease, improved. 5. Status post sleeve gastrectomy 6. Obstructive sleep apnea, resolved 7. Left leg pain PLAN: 1. Recommend ultrasound of the left lower leg for DVT evaluation. 2. Follow-up 1 month postprocedure. 3. Bariatric stage II diet. Objective - Vital Signs Vital signs: Vital Signs Temp 98 F 10/15/17 16:53 Pulse 89 10/15/17 16:53 Resp 16 10/15/17 16:53 BP 122/79 10/15/17 16:53 Pulse Ox Intake & Output 10/14/17 10/15/17 10/15/17 18:59 06:59 18:59 Weight 126.354 kg
== END | disposition home or self-care (01) ==
LOC: BARWHC3 15:55
PROVIDERS: ATTEND Surgery Plastic and Reconstructive Surgery
DX: Z48.815 Encounter for surgical aftercare following surgery on the digestive system (principal); E66.01 Morbid (severe) obesity due to excess calories; I11.9 Hypertensive heart disease without heart failure; K21.9 Gastro-esophageal reflux disease without esophagitis; M79.605 Pain in left leg; E21.1 Secondary hyperparathyroidism, not elsewhere classified; D50.9 Iron deficiency anemia, unspecified; E89.1 Postprocedural hypoinsulinemia; E44.0 Moderate protein-calorie malnutrition; E55.9 Vitamin D deficiency, unspecified; K74.1 Hepatic sclerosis; N19 Unspecified kidney failure; K50.90 Crohn's disease, unspecified, without complications; Z98.84 Bariatric surgery status; Z68.39 Body mass index [BMI] 39.0-39.9, adult
CPT/HCPCS: 97803; 99211

== ENCOUNTER → 2017-11-12 | Outpatient (CLI) | payer MEDICAID ==
[2017-11-12 16:51] VITALS: BP 131/88; PULSE 98; RESP 16; TEMP 98; BMI 36.8
--- NOTE | 2017-11-12 18:23 | P.PN ---
Subjective Progress Note Date: 11/12/17 DATE OF SERVICE: 11/12/2017 REASON FOR VISIT: Status post sleeve gastrectomy HISTORY OF PRESENT ILLNESS: Connor Pal is a 37-year-old gentleman with morbid obesity. He status post sleeve gastrectomy 10/01/2017. He reports pain along the left shoulder. Patient was last seen 10/15/2017. He is 1 month out. At a height of 5 foot 10.25 inches, his ideal body weight is 173 pounds. Highest weight 317 pounds. Today he comes in 258 pounds. He has lost 20 pounds since his last visit 1 month ago. His body mass index is reduced from 45.3 to 36.9. Lifetime weight loss is 59 pounds. Percent excess weight is 41 % . He is 85 pounds overweight. PHYSICAL EXAM: VITAL SIGNS: 5 feet 10.25 inch, 258 pounds, body mass index 36.9. Vital Signs Temp 98 F 11/12/17 16:48 Pulse 98 11/12/17 16:48 Resp 16 11/12/17 16:48 BP 131/88 11/12/17 16:48 Pulse Ox Intake & Output 11/11/17 11/12/17 11/12/17 18:59 06:59 18:59 Weight 117.48 kg GENERAL: Well-developed pleasant male in no acute distress. HEENT: No scleral icterus. Extraocular movements grossly intact. Moist buccal mucosa. No nasal drainage. Hears conversational speech. NECK: Supple without lymphadenopathy. No JVD distention. CHEST: Unlabored respirations with equal bilateral excursions. CARDIOVASCULAR: Regular rate and rhythm. Distal 2+ pulses. ABDOMEN: Obese, soft, nontender, nondistended. Dressing discontinued. No cellulitis or infection. MUSCULOSKELETAL: No clubbing or cyanosis. No edema. Tenderness along the pretibial area of the left lower leg. No calf tenderness. NEURO: No focal or lateralizing signs. Cranial nerves 2 through 12 grossly within normal limits. PSYCH: Appropriate affect. Alert and oriented to person, place and time. SKIN: Well perfused. Good skin turgor. ASSESSMENT: 1. Morbid obesity due to excess calories 2. BMI 45.2 down to 36.9 3. Hypertensive heart disease. 4. Gastroesophageal reflux disease, improved. 5. Status post sleeve gastrectomy 6. Obstructive sleep apnea, resolved 7. Left shoulder. PLAN: 1. Went over labs. 2. Recommend iron with multivitamin. 3. Take Vitamin C based foods with diet. 4. Follow up in December 2017. 5. Vitamin D supplement advised. 6. He is off all weight lifting restrictions. Objective - Vital Signs Vital signs: Vital Signs Temp 98 F 11/12/17 16:48 Pulse 98 11/12/17 16:48 Resp 16 11/12/17 16:48 BP 131/88 11/12/17 16:48 Pulse Ox Intake & Output 11/11/17 11/12/17 11/12/17 18:59 06:59 18:59 Weight 117.48 kg
== END | disposition home or self-care (01) ==
LOC: BARWHC3 16:39
PROVIDERS: ATTEND Surgery Plastic and Reconstructive Surgery
DX: Z48.815 Encounter for surgical aftercare following surgery on the digestive system (principal); E66.01 Morbid (severe) obesity due to excess calories; I11.9 Hypertensive heart disease without heart failure; K21.9 Gastro-esophageal reflux disease without esophagitis; M79.605 Pain in left leg; Z71.3 Dietary counseling and surveillance; Z98.84 Bariatric surgery status; Z68.36 Body mass index [BMI] 36.0-36.9, adult
CPT/HCPCS: 97803; 99211

== ENCOUNTER → 2017-11-14 | Outpatient (CLI) | payer MEDICAID ==
--- NOTE | 2017-11-14 13:47 | XR ---
EXAMINATION TYPE: XR chest 2V DATE OF EXAM: 11/14/2017 COMPARISON: NONE HISTORY: Left-sided back and chest pain. TECHNIQUE: Frontal and lateral views of the chest are obtained. FINDINGS: There is no focal air space opacity, pleural effusion, or pneumothorax seen. The cardiac silhouette size is within normal limits. The osseous structures are intact. IMPRESSION: No acute cardiopulmonary process.
== END | disposition home or self-care (01) ==
LOC: RADXRMAIN 13:23
PROVIDERS: ATTEND Surgery Plastic and Reconstructive Surgery
DX: R07.9 Chest pain, unspecified (principal); R06.02 Shortness of breath
CPT/HCPCS: 71046

== ENCOUNTER → 2018-01-21 | Outpatient (CLI) | payer MEDICAID ==
--- NOTE | 2018-01-21 13:41 | P.PN ---
Subjective Progress Note Date: 01/21/18 HPI: He comes in with occasional feeling of fainting. He also reports spontaneous sweating. Lost over 85 pounds. Overall, he has full family support. He reports occassional GERD not as severe as before. He is 4 months out. He is off blood pressure medications. His bowel movements are 2 to 3 days. PLAN: 1. Teaching of gallbladder symptoms were reviewed. 2. He is happy with his loss fitting clothes. 3. He is due for labs. 4. Omeprazole for GERD.
[2018-01-21 13:46] VITALS: BP 147/85; PULSE 88; RESP 14; TEMP 98.3; BMI 32.6
[2018-01-21 14:56] LABS: HGB 14.7 gm/dL (13.0-17.5); MCH 28.1 pg (25.0-35.0); MCHC 33.4 g/dL (31.0-37.0); MCV 84.2 fL (80.0-100.0); Mean Platelet Volume 7.2; Platelet Count 221 k/uL (150-450); RBC 5.23 m/uL (4.30-5.90); RDW 13.9 % (11.5-15.5); WBC 6.1 k/uL (3.8-10.6)
[2018-01-21 15:04] LABS: Partial Thromboplastin Time 23.9 sec (22.0-30.0); Prothrombin Time 10.2 sec (9.0-12.0)
[2018-01-21 15:35] LABS: ALT 32 U/L (21-72); AST 20 U/L (17-59); Albumin 4.5 g/dL (3.5-5.0); Alkaline Phosphatase 68 U/L (38-126); Anion Gap 12 mmol/L; Blood Urea Nitrogen 12 mg/dL (9-20); Calcium 9.7 mg/dL (8.4-10.2); Carbon Dioxide 26 mmol/L (22-30); Chloride 103 mmol/L (98-107); Cholesterol 171 mg/dL (<200); Glucose 91 mg/dL (74-99); HDL Cholesterol 44 mg/dL (40-60); LDL Cholesterol,Calculated 106 mg/dL (0-99); Magnesium 1.9 mg/dL (1.6-2.3); Phosphorus 3.7 mg/dL (2.5-4.5); Potassium 4.8 mmol/L (3.5-5.1); Sodium 141 mmol/L (137-145); Total Bilirubin 0.9 mg/dL (0.2-1.3); Total Protein 6.9 g/dL (6.3-8.2); Triglycerides 104 mg/dL (<150)
[2018-01-21 20:01] LABS: Parathyroid Hormone Intact 55.6 pg/mL (14.0-72.0)
[2018-01-21 20:52] LABS: Iron Saturation 17.9 (15.00-50.00)
[2018-01-21 20:57] LABS: Vitamin D 25 Hydroxy 34.3 ng/mL (30.0-100.0)
[2018-01-22 02:46] LABS: Hemoglobin A1C 5.1 % (4.0-6.0)
[2018-01-22 12:03] LABS: Zinc, Serum 79 ug/dL (60-130)
[2018-01-23 05:59] LABS: Vitamin A 45 ug/dL (38-106)
[2018-01-23 12:08] LABS: Vitamin B1 72 ug/L (38-122)
[2018-01-23 17:26] LABS: Selenium 129 mcg/L (63-160)
== END | disposition home or self-care (01) ==
LOC: BARWHC3 12:58
PROVIDERS: ATTEND Surgery Plastic and Reconstructive Surgery
DX: R61 Generalized hyperhidrosis (principal); E66.01 Morbid (severe) obesity due to excess calories; E21.1 Secondary hyperparathyroidism, not elsewhere classified; E89.1 Postprocedural hypoinsulinemia; D50.9 Iron deficiency anemia, unspecified; K90.9 Intestinal malabsorption, unspecified; E55.9 Vitamin D deficiency, unspecified; K76.9 Liver disease, unspecified; N19 Unspecified kidney failure; K50.90 Crohn's disease, unspecified, without complications
CPT/HCPCS: 36415; 80053; 80061; 82306; 82525; 82607; 82728; 82746; 83036; 83540; 83550; 83735; 83970; 84100; 84134; 84255; 84425; 84443; 84590; 84630; 85027; 85610; 85730; 97803; 99211

== ENCOUNTER → 2018-03-18 | Outpatient (CLI) | payer MEDICAID ==
[2018-03-18 14:53] VITALS: BP 132/75; PULSE 70; RESP 16; TEMP 98.4; BMI 31.1
--- NOTE | 2018-03-18 14:54 | P.PN ---
Subjective Progress Note Date: 03/18/18 HPI: He reports when he overeats he gets the shakes. He reports GERD but not severe. He has constipation. His weight loss is slowing down. He reports occasional constipation. ABDOMEN: Soft, tender at the right upper quadrant. PLAN: 1. Cholecystectomy described. 2. Labs reviewed.
[2018-03-18 15:35] LABS: HCT 44.5 % (39.0-53.0); HGB 14.4 gm/dL (13.0-17.5); MCH 27.4 pg (25.0-35.0); MCHC 32.3 g/dL (31.0-37.0); MCV 84.8 fL (80.0-100.0); Mean Platelet Volume 7.6; Platelet Count 200 k/uL (150-450); RBC 5.25 m/uL (4.30-5.90); RDW 13.2 % (11.5-15.5); WBC 6.4 k/uL (3.8-10.6)
[2018-03-18 15:37] LABS: Partial Thromboplastin Time 23.9 sec (22.0-30.0); Prothrombin Time 10.1 sec (9.0-12.0)
[2018-03-18 15:43] LABS: ALT 30 U/L (21-72); AST 20 U/L (17-59); Albumin 4.4 g/dL (3.5-5.0); Alkaline Phosphatase 65 U/L (38-126); Anion Gap 9 mmol/L; Blood Urea Nitrogen 11 mg/dL (9-20); Calcium 9.5 mg/dL (8.4-10.2); Carbon Dioxide 25 mmol/L (22-30); Chloride 107 mmol/L (98-107); Cholesterol 173 mg/dL (<200); Glucose 89 mg/dL (74-99); HDL Cholesterol 45 mg/dL (40-60); LDL Cholesterol,Calculated 100 mg/dL (0-99); Phosphorus 3.8 mg/dL (2.5-4.5); Potassium 4.5 mmol/L (3.5-5.1); Sodium 141 mmol/L (137-145); Total Bilirubin 0.7 mg/dL (0.2-1.3); Triglycerides 139 mg/dL (<150)
[2018-03-18 22:21] LABS: Hemoglobin A1C 5.5 % (4.0-6.0)
[2018-03-18 23:07] LABS: Iron Saturation 24.25 (15.00-50.00)
[2018-03-18 23:14] LABS: Vitamin D 25 Hydroxy 31.2 ng/mL (30.0-100.0)
[2018-03-19 00:02] LABS: Parathyroid Hormone Intact 59.4 pg/mL (14.0-72.0)
[2018-03-19 13:20] LABS: Zinc, Serum 82 ug/dL (60-130)
[2018-03-20 06:06] LABS: Vitamin A 53 ug/dL (38-106)
[2018-03-20 08:05] LABS: Vitamin B1 59 ug/L (38-122)
[2018-03-20 17:20] LABS: Selenium 142 mcg/L (63-160)
== END | disposition home or self-care (01) ==
LOC: BARWHC3 13:42
PROVIDERS: ATTEND Surgery Plastic and Reconstructive Surgery
DX: E66.01 Morbid (severe) obesity due to excess calories (principal); E21.1 Secondary hyperparathyroidism, not elsewhere classified; D50.9 Iron deficiency anemia, unspecified; E44.0 Moderate protein-calorie malnutrition; K90.9 Intestinal malabsorption, unspecified; E55.9 Vitamin D deficiency, unspecified; K74.1 Hepatic sclerosis; N19 Unspecified kidney failure; K50.90 Crohn's disease, unspecified, without complications
CPT/HCPCS: 36415; 80053; 80061; 82306; 82525; 82607; 82728; 82746; 83036; 83540; 83550; 83735; 83970; 84100; 84134; 84255; 84425; 84443; 84590; 84630; 85027; 85610; 85730; 97803; 99211

== ENCOUNTER → 2018-07-01 | Outpatient (CLI) | payer MEDICAID ==
--- NOTE | 2018-07-01 16:54 | P.PN ---
Subjective Progress Note Date: 07/01/18 HPI: Has troubles with pasta. Wants more weight loss. He notices decreased GERD. Will check for gallstones and US Recommend fiber 25 g Probiotics for bowel movements
[2018-07-01 17:10] VITALS: BP 122/79; PULSE 76; TEMP 97.8; BMI 30.3
== END | disposition home or self-care (01) ==
LOC: BARWHC3 15:44
PROVIDERS: ATTEND Surgery Plastic and Reconstructive Surgery
DX: K21.9 Gastro-esophageal reflux disease without esophagitis (principal); E66.01 Morbid (severe) obesity due to excess calories; Z79.899 Other long term (current) drug therapy; Z68.30 Body mass index [BMI] 30.0-30.9, adult
CPT/HCPCS: 97803; 99211

== ENCOUNTER → 2018-07-01 | Outpatient (CLI) | payer MEDICAID | END | disposition home or self-care (01) | LOC: BARWHC3 15:44 | PROVIDERS: ATTEND Surgery Plastic and Reconstructive Surgery | DX: Z53.9 Procedure and treatment not carried out, unspecified reason (principal) | CPT/HCPCS: 97803 ==

== ENCOUNTER → 2018-07-17 | Outpatient (CLI) | payer MEDICAID ==
--- NOTE | 2018-07-17 07:29 | US ---
EXAMINATION TYPE: US abdomen limited DATE OF EXAM: 07/17/2018 COMPARISON: US CLINICAL HISTORY: R10.11 ABD.PAIN,GALLSTONES. Pt states ABD pain EXAM MEASUREMENTS: Liver Length: 15.5 cm Gallbladder Wall: 0.3 cm CBD: 0.4 cm Right Kidney: 11.5 x 4.5 x 5.1 cm Pancreas: Obscured by bowel gas Liver: wnl Gallbladder: wnl Evidence for sonographic Renteria's sign: No CBD: wnl Right Kidney: wnl IMPRESSION: No abnormality visualized to account for pt's symptoms
[2018-07-17 08:01] LABS: HCT 42.9 % (39.0-53.0); MCH 27.2 pg (25.0-35.0); MCHC 32.6 g/dL (31.0-37.0); MCV 83.5 fL (80.0-100.0); Mean Platelet Volume 6.9; Platelet Count 178 k/uL (150-450); RBC 5.14 m/uL (4.30-5.90); WBC 6.3 k/uL (3.8-10.6)
[2018-07-17 08:03] LABS: Partial Thromboplastin Time 24.7 sec (22.0-30.0); Prothrombin Time 10.3 sec (9.0-12.0)
[2018-07-17 08:17] LABS: ALT 47 U/L (21-72); AST 50 U/L (17-59); Albumin 4.2 g/dL (3.5-5.0); Alkaline Phosphatase 65 U/L (38-126); Anion Gap 5 mmol/L; Blood Urea Nitrogen 14 mg/dL (9-20); Calcium 9.5 mg/dL (8.4-10.2); Carbon Dioxide 28 mmol/L (22-30); Chloride 109 mmol/L (98-107); Cholesterol 149 mg/dL (<200); Glucose 93 mg/dL (74-99); HDL Cholesterol 44 mg/dL (40-60); LDL Cholesterol,Calculated 83 mg/dL (0-99); Magnesium 1.9 mg/dL (1.6-2.3); Phosphorus 4.1 mg/dL (2.5-4.5); Potassium 4.6 mmol/L (3.5-5.1); Sodium 142 mmol/L (137-145); Total Bilirubin 0.9 mg/dL (0.2-1.3); Total Protein 6.9 g/dL (6.3-8.2); Triglycerides 108 mg/dL (<150)
[2018-07-17 14:12] LABS: Hemoglobin A1C 5.4 % (4.0-6.0)
[2018-07-17 15:48] LABS: Iron Saturation 26.97 (15.00-50.00)
[2018-07-17 15:57] LABS: Vitamin D 25 Hydroxy 22.6 ng/mL (30.0-100.0)
[2018-07-17 15:59] LABS: Folate, Serum 22.6 ng/mL
[2018-07-20 13:54] LABS: Zinc, Serum 100 ug/dL (60-130)
[2018-07-21 06:46] LABS: Vitamin A 60 ug/dL (38-106)
[2018-07-21 07:39] LABS: Vitamin B1 78 ug/L (38-122)
== END | disposition home or self-care (01) ==
LOC: RADUSWWP 06:56
PROVIDERS: ATTEND Surgery Plastic and Reconstructive Surgery
DX: R10.11 Right upper quadrant pain (principal); E21.1 Secondary hyperparathyroidism, not elsewhere classified; E89.1 Postprocedural hypoinsulinemia; D50.9 Iron deficiency anemia, unspecified; E44.0 Moderate protein-calorie malnutrition; E55.9 Vitamin D deficiency, unspecified; K74.1 Hepatic sclerosis; N19 Unspecified kidney failure; K50.90 Crohn's disease, unspecified, without complications; E66.01 Morbid (severe) obesity due to excess calories
CPT/HCPCS: 36415; 76705; 80053; 80061; 82306; 82525; 82607; 82728; 82746; 83036; 83540; 83550; 83735; 83970; 84100; 84134; 84255; 84425; 84443; 84590; 84630; 85027; 85610; 85730

== ENCOUNTER → 2018-09-30 | Outpatient (CLI) | payer MEDICAID ==
--- NOTE | 2018-09-30 18:01 | P.PN ---
Subjective Progress Note Date: 09/30/18 HPI: He reports GERD. He has indigestion with fatty milk. He is 1 year out. Weight loss over 100+ pounds. Has intermittent constipation. ABDOMEN: No hernia ASSESSMENT: 1. GERD 2. Reactive hypoglycemia PLAN: 1. Continue Omeprazole 40 mg daily 2. Recommend EGD 3. US gallbladder reviewed. 4. Labs
[2018-10-01 10:30] VITALS: BP 112/83; PULSE 76; TEMP 98.2; BMI 29.0
== END ==
LOC: BARWHC3 16:40
PROVIDERS: ATTEND Surgery Plastic and Reconstructive Surgery
DX: K21.9 Gastro-esophageal reflux disease without esophagitis (principal); E16.1 Other hypoglycemia; K30 Functional dyspepsia; R63.4 Abnormal weight loss; K59.00 Constipation, unspecified
CPT/HCPCS: 99211

== ENCOUNTER 2018-11-30 13:39 | Day surgery (SDC) | payer MEDICAID ==
[2018-11-25 15:41] VITALS: BMI 28.4
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
[~2018-11-30 13:39] MED LIST changes: -CHLORHEXIDINE GLUCONATE 15 ML CUP MUCOUS MEM ONE; -ENOXAPARIN 40 MG/0.4 ML SYRINGE SQ STA; -HYDROmorphone 0.5 MG/0.5 ML SYRINGE IVP PRN; +LACTATED RINGERS 1,000 ML IV SCH; -ONDANSETRON 4 MG/2 ML VIAL IVP PRN; -PANTOPRAZOLE 40 MG/10 ML VIAL IV STA; -SCOPOLAMINE 1.5MG/72HR PATCH TRANSDERM SCH
[2018-11-30 14:02] VITALS: RESP 16; TEMP 97.8
[2018-11-30] MEDS ORDERED: GLYCOPYRROLATE 0.2 MG/ML 2 ML VIAL ONE (14:37)
[2018-11-30] MEDS ORDERED: PROPOFOL 10 MG/ML 20 ML VIAL IV ONE (14:37)
[2018-11-30] MEDS ORDERED: LIDOCAINE 1% INJ 10MG/ML (20 ML MDV) ONE (14:37)
[2018-11-30 15:10] VITALS: BP 118/76; PULSE 63
--- NOTE | 2018-11-30 15:17 | P.PCN ---
Date of Procedure: 11/30/18 Description of Procedure: PREOPERATIVE DIAGNOSIS: Status post sleeve gastrectomy. Gastroesophageal reflux disease. Epigastric abdominal pain. POSTOPERATIVE DIAGNOSIS: Status post sleeve gastrectomy. Gastroesophageal reflux disease. Epigastric abdominal pain. Erosive esophagitis, chronic. Diaphragmatic hiatal hernia without obstruction. Chronic superficial gastritis. OPERATION: Esophagogastroduodenoscopy with cold forceps biopsies along the antrum. SURGEON: Lisy Andres MD ANESTHESIA: MAC. INDICATIONS: The patient is a 38-year-old male who presents with a history of sleeve gastrectomy with abdominal pain. Benefits and risks of the procedure were described. Informed consent was obtained. DESCRIPTION: The patient was brought into the endoscopy suite and laid in the left lateral decubitus position. An Olympus gastroscope was passed along the posterior oropharynx down to the distal esophagus where the squamocolumnar junction was at 37 centimeters from the incisors remarkable for chronic erosive esophagitis, LA grade C without ulceration. The stomach was entered where she had a 4-cm hiatal hernia with a diaphragmatic hiatus found at 41 cm. The sleeve reservoir accommodated easy retroflexion of the scope to view the lower esophageal valve. Chronic gastritis albeit mild was found along the antrum with cold biopsies obtained. The first through third portion of the duodenum was examined and unremarkable. The scope again had easily retroflexed along the antrum. The stomach was desufflated. The patient tolerated the procedure well. FINDINGS: No acute ulceration found along her sleeve. No corkscrewing sleeve gastrectomy. Squamocolumnar junction at 37 cm from the incisors. Diaphragmatic hiatus at 41 cm. Easy retroflexion of the gastroscope to view the lower esophageal valve, Hill grade 4. Hiatal hernia 4 cm, fixed. LA grade C erosive esophagitis. No active duodenitis. Chronic gastritis. RECOMMENDATIONS: Upper endoscopy as needed. May benefit from antireflux operation. Continue with current therapy. Plan - Discharge Summary Discharge Rx Participant: No New Discharge Prescriptions: No Action Multivitamin with Iron [Multivitamins with Iron] 1 tab PO DAILY Omeprazole 40 mg PO DAILY #90 capsule. Discharge Medication List Multivitamin with Iron [Multivitamins with Iron] 1 tab PO DAILY 11/13/17 [History] Omeprazole 40 mg PO DAILY #90 capsule. 09/30/18 [Rx] Follow up Appointment(s)/Referral(s): [facility] [[facility]-STAFF] - 12/02/18 Patient Instructions/Handouts: *Sur[facility] - (Anesthesia) Endoscopy Discharge Instructions, Upper Endoscopy (DC), Hiatal Hernia (DC) Discharge Disposition: HOME SELF-CARE
== END 2018-11-30 15:17 | disposition home or self-care (01) ==
LOC: ORWHC2ENDO 13:39
PROVIDERS: ATTEND Surgery Plastic and Reconstructive Surgery
DX: K21.0 Gastro-esophageal reflux disease with esophagitis (principal); K29.30 Chronic superficial gastritis without bleeding; K44.9 Diaphragmatic hernia without obstruction or gangrene; K22.10 Ulcer of esophagus without bleeding; Z98.84 Bariatric surgery status; I10 Essential (primary) hypertension; M19.90 Unspecified osteoarthritis, unspecified site; G47.30 Sleep apnea, unspecified; Z87.820 Personal history of traumatic brain injury; Z79.899 Other long term (current) drug therapy
CPT/HCPCS: 88305; 43239; J2001; J2704

== ENCOUNTER → 2018-11-30 | Outpatient (CLI) | payer MEDICAID ==
[2018-11-30 14:20] LABS: HCT 44.4 % (39.0-53.0); HGB 14.5 gm/dL (13.0-17.5); MCH 27.8 pg (25.0-35.0); MCHC 32.8 g/dL (31.0-37.0); MCV 84.9 fL (80.0-100.0); Mean Platelet Volume 7.4; Platelet Count 211 k/uL (150-450); RBC 5.23 m/uL (4.30-5.90); RDW 13.6 % (11.5-15.5); WBC 4.9 k/uL (3.8-10.6)
[2018-11-30 14:24] LABS: Partial Thromboplastin Time 24.7 sec (22.0-30.0); Prothrombin Time 10.7 sec (9.0-12.0)
[2018-11-30 18:40] LABS: Iron Saturation 23.34 (15.00-50.00)
[2018-11-30 18:57] LABS: Albumin 4.7 g/dL (3.80-4.90); Albumin/Globulin Ratio 2.47 (1.60-3.17); Anion Gap 6.5 mmol/L (4.00-12.00); Calcium 9.5 mg/dL (8.7-10.3); Carbon Dioxide 27.5 mmol/L (21.6-31.8); Globulin 1.9 g/dL (1.6-3.3); LDL Cholesterol,Calculated 92.4 mg/dL (0.0-131.0); Phosphorus 4.2 mg/dL (2.4-5.1); Potassium 4.5 mmol/L (3.5-5.5); Total Bilirubin 0.7 mg/dL (0.3-1.2); Total Protein 6.6 g/dL (6.2-8.2); VLDL Calculation 15.6 mg/dL (5.00-40.00)
[2018-11-30 19:17] LABS: Parathyroid Hormone Intact 56.1 pg/mL (14.0-72.0)
[2018-11-30 19:47] LABS: Folate, Serum 14.2 ng/mL
[2018-11-30 20:20] LABS: Hemoglobin A1C 5.4 % (4.0-6.0)
[2018-12-01 13:28] LABS: Vitamin A 71 ug/dL (38-106)
[2018-12-01 15:10] LABS: Zinc, Serum 93 ug/dL (60-130)
[2018-12-03 15:05] LABS: Vit B1(Thiamine) 80 ug/L (38-122)
== END | disposition home or self-care (01) ==
LOC: LABWHC1 13:26
PROVIDERS: ATTEND Surgery Plastic and Reconstructive Surgery
DX: E66.01 Morbid (severe) obesity due to excess calories (principal); E21.1 Secondary hyperparathyroidism, not elsewhere classified; E89.1 Postprocedural hypoinsulinemia; D50.9 Iron deficiency anemia, unspecified; K90.9 Intestinal malabsorption, unspecified; E55.9 Vitamin D deficiency, unspecified; K74.1 Hepatic sclerosis; N19 Unspecified kidney failure; K50.90 Crohn's disease, unspecified, without complications
CPT/HCPCS: 36415; 80053; 80061; 82306; 82525; 82607; 82728; 82746; 83036; 83540; 83550; 83735; 83970; 84100; 84134; 84255; 84425; 84443; 84590; 84630; 85027; 85610; 85730

== ENCOUNTER → 2018-12-02 | Outpatient (CLI) | payer MEDICAID ==
[2018-12-02 17:14] VITALS: BP 143/82; PULSE 74; RESP 16; TEMP 98.2; BMI 29.9
--- NOTE | 2018-12-02 18:25 | P.PN ---
Subjective Progress Note Date: 12/02/18 HPI: He has severe reflux. He is not getting long enough relief with Omeprazole. ABDOMEN: Unremarkable STUDIES: EGD shows Hill grade 4 valve ASSESSMENT: 1. Hiatal hernia PLAN: 1. Robotic hiatal hernia repair 2. Zantac 150 for additional relief 3. 4 weeks of no lifting reviewed 4. He is looking into January versus Jun Objective - Vital Signs Vital signs: Vital Signs Temp 98.2 F 12/02/18 17:12 Pulse 74 12/02/18 17:12 Resp 16 12/02/18 17:12 BP 143/82 12/02/18 17:12 Pulse Ox Intake & Output 12/01/18 12/02/18 12/02/18 18:59 06:59 18:59 Weight 95.254 kg
== END | disposition home or self-care (01) ==
LOC: BARWHC3 16:52
PROVIDERS: ATTEND Surgery Plastic and Reconstructive Surgery
DX: K44.9 Diaphragmatic hernia without obstruction or gangrene (principal)
CPT/HCPCS: 99211

== ENCOUNTER → 2020-01-21 | Outpatient (CLI) | payer MEDICAID ==
[2020-01-21 16:33] LABS: HCT 42.4 % (39.0-53.0); HGB 14.1 gm/dL (13.0-17.5); MCH 28.7 pg (25.0-35.0); MCHC 33.3 g/dL (31.0-37.0); MCV 86.1 fL (80.0-100.0); Mean Platelet Volume 8.5; Platelet Count 177 k/uL (150-450); RBC 4.92 m/uL (4.30-5.90); RDW 12.7 % (11.5-15.5); WBC 6.5 k/uL (3.8-10.6)
[2020-01-21 22:46] LABS: INR 0.96 (0.90-1.11); Partial Thromboplastin Time 26.5 sec (24.7-29.9); Prothrombin Time 10.3 sec (9.9-11.9)
[2020-01-21 23:54] LABS: % Iron Saturation 20.78 (15.00-50.00); African American GFR (CKD) 110.2 (60.0-200.0); Albumin 4.5 g/dL (3.80-4.90); Albumin/Globulin Ratio 2.25 (1.60-3.17); Anion Gap 6.7 mmol/L (4.00-12.00); Calcium 9.4 mg/dL (8.7-10.3); Carbon Dioxide 27.3 mmol/L (21.6-31.8); Chol/HDL Ratio 3.21; LDL Cholesterol,Calculated 82.8 mg/dL (0.0-131.0); Non-African American GFR(CKD) 95.1 (60.0-200.0); Phosphorus 3.1 mg/dL (2.4-5.1); Potassium 4.4 mmol/L (3.5-5.5); Total Bilirubin 0.4 mg/dL (0.3-1.2); Total Protein 6.5 g/dL (6.2-8.2); VLDL Calculation 21.2 mg/dL (5.00-40.00)
[2020-01-22 00:02] LABS: Ferritin 197.4 ng/mL (22.0-322.0)
[2020-01-22 00:11] LABS: Folate, Serum 16.9 ng/mL
[2020-01-22 04:04] LABS: Hemoglobin A1C 5.6 % (4.0-6.0)
== END | disposition home or self-care (01) ==
LOC: LABWHC1 14:35
PROVIDERS: ATTEND Surgery Plastic and Reconstructive Surgery
DX: E66.01 Morbid (severe) obesity due to excess calories (principal); E21.1 Secondary hyperparathyroidism, not elsewhere classified; D50.9 Iron deficiency anemia, unspecified; K90.9 Intestinal malabsorption, unspecified; E55.9 Vitamin D deficiency, unspecified; K74.1 Hepatic sclerosis; N19 Unspecified kidney failure; K50.90 Crohn's disease, unspecified, without complications; E89.1 Postprocedural hypoinsulinemia
CPT/HCPCS: 36415; 80053; 80061; 82306; 82525; 82607; 82728; 82746; 83036; 83540; 83550; 83735; 83970; 84100; 84134; 84255; 84425; 84590; 84630; 85027; 85610; 85730

== ENCOUNTER → 2020-05-31 | Outpatient (CLI) | payer MEDICAID ==
--- NOTE | 2020-05-31 16:09 | P.PN ---
Subjective Progress Note Date: 05/31/20 DATE OF SERVICE: 05/31/2020 CHIEF COMPLAINT: Sleeve gastrectomy HISTORY OF PRESENT ILLNESS: Connor Pal is a 40-year-old gentleman status post sleeve gastrectomy 10/01/2017. He is 2 years out. He has occasional epigastric pain. He reports occasional low blood sugars. He has a symptomatic hiatal her birgit. He has weight gain. He presents with worsening epigastric abdominal pain and uncontrolled gastroesophageal reflux disease. At a height of 5 foot 10.25 inches, his ideal body weight is 173 pounds. Highest weight 317 pounds. Today he comes in 240 pounds from 231 pounds, 4 months ago. He has gained 10 pounds in 4 months. His body mass index is reduced from 45.3 to 34.3. Lifetime weight loss is 77 pounds. Percent excess weight is 53 %. PAST MEDICAL HISTORY: 1. Morbid obesity, BMI 45.3, initial 2. Osteoarthritis of the bilateral knees. 3. Obstructive sleep apnea. 4. History of prediabetes. 5. History of lower back pain. 6. History of osteoarthritis of the bilateral ankles. 7. Previous history of closed head injury. 8. Hypertensive heart disease. PAST SURGICAL HISTORY: 1. Left knee ACL repair. 2. Esophagogastroduodenoscopy. 3. Colonoscopy. 4. Status post sleeve gastrectomy MEDICATIONS: Home Medications Medication Instructions Recorded Confirmed Multivitamin with Iron 1 tab PO DAILY 11/13/17 12/02/18 [Multivitamins with Iron] Cholecalciferol (Vitamin D3) 10,000 unit PO DAILY 12/02/18 12/02/18 [Vitamin D3] Previous Rx's Medication Instructions Recorded Omeprazole 40 mg PO DAILY #90 capsule. 09/30/18 Ranitidine HCl [Zantac] 150 mg PO BID #60 tab 12/02/18 ALLERGIES: Denies. SOCIAL HISTORY: Former smoker. FAMILY HISTORY: Pertinent for toxic megacolon. Has family history of esophageal cancer including gallbladder disease as well as gastroesophageal reflux disease. Has family history of hiatal hernia. History of morbid obesity. REVIEW OF SYSTEMS: CONSTITUTIONAL: At a height of 5 foot 10.25 inches, his ideal body weight is 173 pounds. Highest weight 317 pounds. His body mass index is reduced from 45.3. HEENT: Denies any active troubles with vision or hearing. ENDOCRINE: No reports of hypothyroidism. No reports of blood sugar glucose intolerance. RESPIRATORY: Has obstructive sleep apnea. No COPD or asthma. CARDIOVASCULAR: No reports of heart attacks or chest pain. History of hypertensive heart disease. GI: Denies any diarrhea, constipation, or blood in stools. Has severe gastroesophageal reflux disease now improved with weight loss. Reports fatty food intolerance. MUSCULOSKELETAL: Has diffuse joint pain involving the lower back, hips, knees, ankles. NEURO: No reports of seizure disorders. History of headaches. PSYCH: No reports of depression or suicidal ideation. SKIN: No skin cancers. No recent rash. HEMATOLOGIC: No family history of DVTs or pulmonary embolism. PHYSICAL EXAM: VITAL SIGNS: 5 feet 10.25 inch, 240 pounds, body mass index 34.3 Vital Signs Temp 98.2 F 05/31/20 16:00 Pulse 85 05/31/20 16:00 Resp 18 05/31/20 16:00 BP 128/84 05/31/20 16:00 Pulse Ox GENERAL: Well-developed pleasant male in no acute distress. HEENT: No scleral icterus. Extraocular movements grossly intact. Moist buccal mucosa. No nasal drainage. Hears conversational speech. NECK: Supple without lymphadenopathy. No JVD distention. CHEST: Unlabored respirations with equal bilateral excursions. CARDIOVASCULAR: Regular rate and rhythm. Distal 2+ pulses. ABDOMEN: Soft, nontender. Nondistended. MUSCULOSKELETAL: No clubbing or cyanosis. No edema. NEURO: No focal or lateralizing signs. Cranial nerves 2 through 12 grossly within normal limits. PSYCH: Appropriate affect. Alert and oriented to person, place and time. SKIN: Well perfused. Good skin turgor. ASSESSMENT: 1. Morbid obesity due to excess calories 2. BMI 45.2 down to 32.9 3. Hypertensive heart disease, resolved. 4. Gastroesophageal reflux disease, improved. 5. Status post sleeve gastrectomy 6. Obstructive sleep apnea, resolved 7. Reactive hypoglycemia 8. Hiatal hernia PLAN: 1. He has symptomatic hiatal hernia including uncontrolled gastroesophageal reflux disease. Recommend hiatal hernia. 2. Robotic assisted approach described. 3. He has occasional right upper quadrant abdominal pain where gallbladder symptoms described. 4. Omeprazole prescribed for controlling his symptoms.
[2020-06-01 09:43] VITALS: BP 128/84; PULSE 85; RESP 18; TEMP 98.2
== END | disposition home or self-care (01) ==
LOC: BARWHC3 15:41
PROVIDERS: ATTEND Surgery Plastic and Reconstructive Surgery
DX: Z48.815 Encounter for surgical aftercare following surgery on the digestive system (principal); E66.01 Morbid (severe) obesity due to excess calories; K21.9 Gastro-esophageal reflux disease without esophagitis; E16.1 Other hypoglycemia; K44.9 Diaphragmatic hernia without obstruction or gangrene; Z68.32 Body mass index [BMI] 32.0-32.9, adult; Z83.49 Family history of other endocrine, nutritional and metabolic diseases; Z87.891 Personal history of nicotine dependence; Z98.84 Bariatric surgery status; Z79.899 Other long term (current) drug therapy
CPT/HCPCS: 99211

== ENCOUNTER → 2020-06-16 | Outpatient (CLI) | payer MEDICAID ==
[2020-06-16 15:09] LABS: Basophils # (A) 0.1 k/uL (0-0.2); Basophils % (A) 1 %; Eosinophils # (A) 0.1 k/uL (0-0.7); Eosinophils % (A) 2 %; HCT 44.3 % (39.0-53.0); HGB 14.8 gm/dL (13.0-17.5); Lymphocytes # (A) 1.7 k/uL (1.0-4.8); Lymphocytes % (A) 28 %; MCH 28.6 pg (25.0-35.0); MCHC 33.5 g/dL (31.0-37.0); MCV 85.3 fL (80.0-100.0); Mean Platelet Volume 7.9; Monocytes # (A) 0.3 k/uL (0-1.0); Monocytes % (A) 5 %; Neutrophils # (A) 3.6 k/uL (1.3-7.7); Neutrophils % (A) 61 %; Platelet Count 198 k/uL (150-450); RBC 5.19 m/uL (4.30-5.90); RDW 12.7 % (11.5-15.5); WBC 5.9 k/uL (3.8-10.6)
[2020-06-16 15:19] LABS: ALT 21 U/L (4-49); AST 27 U/L (17-59); African American GFR (CKD) >90 (>60 ml/min/1.73 sqM); Albumin 4.7 g/dL (3.5-5.0); Alkaline Phosphatase 53 U/L (38-126); Anion Gap 5 mmol/L; Blood Urea Nitrogen 18 mg/dL (9-20); Calcium 9.7 mg/dL (8.4-10.2); Carbon Dioxide 28 mmol/L (22-30); Chloride 107 mmol/L (98-107); Glucose 97 mg/dL (74-99); Non-African American GFR(CKD) >90 (>60 ml/min/1.73 sqM); Sodium 140 mmol/L (137-145); Total Bilirubin 0.5 mg/dL (0.2-1.3); Total Protein 7.3 g/dL (6.3-8.2)
== END | disposition home or self-care (01) ==
LOC: LABPAT 13:13
PROVIDERS: ATTEND Surgery Plastic and Reconstructive Surgery
DX: Z01.818 Encounter for other preprocedural examination (principal); Z98.890 Other specified postprocedural states
CPT/HCPCS: 36415; 80053; 85025; 93005

== ENCOUNTER 2020-06-26 08:36 | Inpatient (IN) | payer MEDICAID ==
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
[~2020-06-26 08:36] MED LIST changes: +ACETAMINOPHEN TAB 500 MG TAB PO STA; +DEXAMETHASONE SOD PHOSPHATE 4 MG/ML 1 ML VIAL IV ONE; +GABAPENTIN 300 MG CAP PO STA; +HEPARIN SODIUM,PORCINE 5,000 UNIT/ML 1 ML VIAL SQ STA; +HYDROmorphone 0.5 MG/0.5 ML SYRINGE IVP PRN; -LACTATED RINGERS 1,000 ML IV SCH; +LIDOCAINE 1% (10MG/ML) FOR IV START INTRADERMA PRN; +ONDANSETRON 4 MG/2 ML VIAL IVP ONE; +SCOPOLAMINE 1.5MG/72HR PATCH TRANSDERM ONE
[2020-06-26] MEDS: LACTATED RINGERS 1,000 ML IV SCH (09:48)
[2020-06-26] MEDS ORDERED: MIDAZOLAM 2 MG/2 ML VIAL IVP ONE (10:13)
[2020-06-26] MEDS ORDERED: fentaNYL (PF) 50 MCG/ML 2 ML AMP ONE (11:09)
[2020-06-26] MEDS ORDERED: GLYCOPYRROLATE 0.2 MG/ML 2 ML VIAL ONE (11:09)
[2020-06-26] MEDS ORDERED: SUCCINYLCHOLINE CHLORIDE 100 MG/5 ML SYR IV ONE (11:09)
[2020-06-26] MEDS ORDERED: PROPOFOL 10 MG/ML 20 ML VIAL IV ONE (11:09)
[2020-06-26] MEDS ORDERED: LIDOCAINE 1% INJ 10MG/ML (20 ML MDV) ONE (11:09)
[2020-06-26] MEDS ORDERED: NEOSTIGMINE 1 MG/ML 10 ML VIAL ONE (11:09)
[2020-06-26] MEDS ORDERED: HYDROmorphone (PF) 1 MG/ML ONE (11:09)
[2020-06-26] MEDS ORDERED: ROCURONIUM 10 MG/ML (10 ML VIAL) IV ONE (11:09)
[2020-06-26] MEDS ORDERED: KETAMINE 10 MG/ML 20 ML VIAL ONE (11:09)
[2020-06-26] MEDS ORDERED: HEPARIN SODIUM,PORCINE 5,000 UNIT/ML 1 ML VIAL ONE (11:09)
[2020-06-26] MEDS ORDERED: LIDOCAINE 2%-EPI 1:100,000 20 ML VIAL SQ ONE (11:41)
[2020-06-26] MEDS ORDERED: LACTATED RINGERS 1,000 ML IV ONE (11:53)
[2020-06-26] MEDS ORDERED: NALOXONE 0.4 MG/ML 1 ML VIAL IV PRN (13:08)
[2020-06-26] MEDS ORDERED: diphenhydrAMINE 50 MG/ML 1 ML VIAL IVP PRN (13:08)
[2020-06-26] MEDS ORDERED: KETOROLAC 15 MG/ML 1 ML VIAL IVP ONE (13:10)
[2020-06-26] MEDS ORDERED: DEXAMETHASONE SOD PHOSPHATE 10 MG/ML 1 ML VIAL IV PRN (13:11)
--- NOTE | 2020-06-26 13:22 | P.OP ---
Date of Procedure: 06/26/20 Description of Procedure: SURGEON: KWAME LANDIS MD PREOPERATIVE DIAGNOSES: 1. Gastroesophageal reflux disease, with erosive esophagitis 2. Paraesophageal hiatal hernia, midline 3. Obesity due to excess calories, BMI of 32.0 4. History of sleeve gastrectomy POSTOPERATIVE DIAGNOSES: 1. Gastroesophageal reflux disease, with erosive esophagitis 2. Paraesophageal hiatal hernia, midline 3. Obesity due to excess calories, BMI of 32.0 4. History of sleeve gastrectomy OPERATION: 1. Robotic-assisted da Abimael Xi laparoscopic reduction and repair of recurrent incarcerated paraesophageal hiatal hernia, 5 x 4 cm, with Metter Biopatch A 8 x 8 cm. 2. Intraoperative esophagogastroscopy 3. Placement of 56-Martiniquais bougie ANESTHESIA: General with local anesthetic. ESTIMATED BLOOD LOSS: 10 mL Pathology: None COMPLICATIONS: None. FINDINGS: 1. Incarcerated upper pole of the stomach within the mediastinum with dissection performed with incision of mediastinal hernia sac, type III paraesophageal hiatal hernia 2. 4 cm paraesophageal incarcerated diaphragmatic hiatal hernia with dissection into the mediastinum 3. Metter Biopatch A onlay mesh placed. 4. GE junction at 40 cm from the incisors 5. Intra-abdominal esophageal length over 1 cm obtained INDICATIONS: The patient is a 80 year-old male who presents with epigastric abdominal pain, dysphagia, history of sleeve gastrectomy, gastroesophageal reflux recalcitrant to medical therapy with a symptomatic diaphragmatic hiatal hernia. Preoperative workup including upper endoscopy demonstrated hiatal hernia with erosive esophagitis. Given the severity of symptoms, he had elected for surgical intervention. Benefits and risks including bleeding, infection, recurrence, dysphagia, injury to the lung, need for further surgery was described at length. Informed consent was obtained. DESCRIPTION: The patient was brought into the operating room and placed in supine position. Preoperatively she had received heparin subcutaneously for DVT prophylaxis. After general induction, the abdomen was prepped and draped in standard sterile fashion. The patient had previously voided prior to coming to the operating room. Ioban draping was placed along the abdomen. A timeout protocol was confirmed with the surgical team, for which the patient's name, procedure to be performed including DVT prophylaxis with bilateral SCDs, and preoperative antibiotics were also confirmed. A robotic da Abimael Xi system was prepped and primed. At 13 cm from the xiphoid to just below the umbilicus, proposed port sites were marked with indelible marker along the left axillary line, left mid-clavicular line with each ports were marked 10 cm from each other. A 5 mm 0 degrees laparoscopic trocar entry was performed along the left upper quadrant. The abdomen was insufflated to 15 mmHg pressure was tolerated well. Diagnostic laparoscopy demonstrated no injury to bowel, viscera. Severe peritoneal of the lower abdomen was identified and undisturbed. No additional adhesions were found along the liver or the sleeve gastrectomy to the liver. Next, one 8 mm robotic port was placed along the right upper abdomen. An 8-mm port was were placed along the left lateral abdominal wall. The camera 8-mm port was maintained along the epigastrium. Another 12 mm port was placed along the left upper abdominal wall after exchanging the 5 mm port. Please note that the ports were placed at least 20 cm away from the target anatomy. Care was taken to check that each robotic arm were safely away from collision with the bed or the patient. The patient was repositioned in reverse Trendelenburg position at 21-degrees after lowering the bed. The robot was docked above the left side of the patient. Using a grasper for arm 3, a grasper for arm 1, including vessel sealer for arm 2, the robotic system was docked and primed as described. Instruments were interchanged by the bilingual medical assistant. I had sat at the console. Initial attention was brought to hiatus. Circumferentially the dissection at the hiatus was performed using vessel sealer including blunt dissection. The gastrohepatic ligament was cleaved using a vessel sealer. Next, the phrenoesophageal ligament was mobilized and the distal esophagus was mobilized circumferentially. An incarcerated hernia sac was found into the mediastinum. As a result, deep dissection well into the mediastinum was needed to free the proximal sleeve gastrectomy including the mid to distal esophagus with retained gastric funduc consistent with a type III hiatal hernia. The left and right crura was identified. Significant mobilization of the distal to mid esophagus into the mediastinum was performed. Circumferentially, the hernia sac was incised and brought into the abdominal cavity. Care was taken to avoid any gastrotomy to the incarcerated upper pole of the stomach. The measured defect was measured with a ruler consistent with 5 cm axial length and 4 cm in width. After extensive dissection, the distal esophagus at least 1 cm was brought into the abdominal cavity. Once the hiatus and crura was dissected, 2-0 VLOC nonabsorbable suture was placed as a running suture to re-approximate the diaphragmatic hiatus posteriorly. To buttress the repair, a Metter Biopatch A was prepared along the back table and cut in a half nicholson-hole fashion as to reinforce the repair as an underlay. The mesh was resized posteriorly placed along the crural repair and tagged using 2- 0 VLOC. I went to the head where a 56-Martiniquais bougie was placed and easily slid past the hiatal hernia repair without stricture. Next, intraoperative esophagogastroduodenoscopy was performed. An Olympus gastroscope was passed through posterior oropharynx, where the squamocolumnar junction was confirmed at 40 cm from the incisors. The hiatus repair was confirmed from the incisors. The stomach was entered. The stomach had been desufflated. No evidence of leaks were found or mucosal defects of the esophagus or stomach. This concluded the endoscopic portion of the case. The robot was undocked from the patient. I re-scrubbed into the case. All instruments and pneumoperitoneum were evacuated from the abdominal cavity. The incisions were cleansed with dilute hydrogen peroxide with saline solution. Incisions were reapproximated using 4-0 Monocryl in an interrupted subcuticular fashion. The 12-mm port site fascial defect was less than 8 mm in size. Exofin was applied to the skin. Local anesthetic was infiltrated in all wounds for postop analgesia. Multiple intra-abdominal films were obtained. At the end of the procedure, needle, sponge, and instrument count was verified correct by the surgical aides teacher. The patient had tolerated the procedure well and was taken to the postanesthesia unit in stable condition. Intraoperative films were reviewed with the patient's family who were pleased with the level of care. Plan - Discharge Summary Discharge Rx Participant: No New Discharge Prescriptions: No Action Multivitamins, Thera [Multivitamin (formulary)] 1 tab PO DAILY Omeprazole [PriLOSEC] 40 mg PO QAM Calcium Carb/Magnesium Hydrox [Rolaids Chewable Tablet] 1 - 2 tab PO DIRECTED PRN PRN Reason: GERD Discharge Medication List Multivitamins, Thera [Multivitamin (formulary)] 1 tab PO DAILY 06/01/20 [History] Calcium Carb/Magnesium Hydrox [Rolaids Chewable Tablet] 1 - 2 tab PO DIRECTED PRN 06/22/20 [History] Omeprazole [PriLOSEC] 40 mg PO QAM 06/22/20 [History]
[2020-06-26] MEDS: ACETAMINOPHEN IV (For NPO) 1,000 MG in EMPTY BAG 1 BAG IVPB ONE ×2 (14:05→14:20)
[2020-06-26] MEDS: ACETAMINOPHEN ORAL SUSP (PEDS) 3,840 MG/120 ML BOTTLE PO SCH ×2 (16:11→20:41)
[2020-06-26] MEDS: KETOROLAC 15 MG/ML 1 ML VIAL IVP SCH ×2 (16:59→23:20)
[2020-06-26] MEDS: SIMETHICONE 40 MG/0.6 ML DROPS 2,000 MG/30 ML BOTTLE PO SCH ×2 (17:01→23:21)
[2020-06-26] MEDS: DEXAMETHASONE SOD PHOSPHATE 4 MG/ML 1 ML VIAL IV SCH ×2 (17:03→23:22)
[2020-06-26] MEDS: HYOSCYAMINE ORAL DROPS 1.875 MG/15 ML BOTTLE PO SCH ×2 (17:05→23:21)
[2020-06-26] MEDS: ONDANSETRON 4 MG/2 ML VIAL IVP SCH (17:07)
[2020-06-26] MEDS: ALBUTEROL NEBULIZED 2.5 MG/3 ML INHALATION SCH ×2 (17:21→19:08)
[2020-06-26] MEDS: 0.9% NACL WITH KCL 20 MEQ/L 1,000 ML IV SCH ×2 (18:28→23:20)
[2020-06-27] MEDS: ONDANSETRON 4 MG/2 ML VIAL IVP SCH ×2 (00:59→05:42)
[2020-06-27] MEDS: ACETAMINOPHEN ORAL SUSP (PEDS) 3,840 MG/120 ML BOTTLE PO SCH ×2 (03:38→07:39)
[2020-06-27] MEDS: 0.9% NACL WITH KCL 20 MEQ/L 1,000 ML IV SCH (03:40)
[2020-06-27] MEDS: LACTATED RINGERS 1,000 ML IV SCH (05:32)
[2020-06-27] MEDS: KETOROLAC 15 MG/ML 1 ML VIAL IVP SCH (05:40)
[2020-06-27] MEDS: HYOSCYAMINE ORAL DROPS 1.875 MG/15 ML BOTTLE PO SCH (05:41)
[2020-06-27] MEDS: SIMETHICONE 40 MG/0.6 ML DROPS 2,000 MG/30 ML BOTTLE PO SCH (05:41)
[2020-06-27] MEDS: DEXAMETHASONE SOD PHOSPHATE 4 MG/ML 1 ML VIAL IV SCH (05:41)
[2020-06-27 07:05] VITALS: BP 127/68; RESP 20; TEMP 98.2
[2020-06-27] MEDS ORDERED: 0.9% NACL WITH KCL 20 MEQ/L 1,000 ML IV SCH (08:00)
[2020-06-27 08:04] LABS: Basophils % (A) 0 %; Eosinophils % (A) 0 %; HCT 43.4 % (39.0-53.0); HGB 14.5 gm/dL (13.0-17.5); Lymphocytes % (A) 9 %; MCH 28.6 pg (25.0-35.0); MCHC 33.5 g/dL (31.0-37.0); MCV 85.5 fL (80.0-100.0); Mean Platelet Volume 7.7; Monocytes # (A) 0.5 k/uL (0-1.0); Monocytes % (A) 5 %; Neutrophils # (A) 8.8 k/uL (1.3-7.7); Neutrophils % (A) 84 %; Platelet Count 216 k/uL (150-450); RBC 5.08 m/uL (4.30-5.90); RDW 12.7 % (11.5-15.5); WBC 10.5 k/uL (3.8-10.6)
[2020-06-27] MEDS ORDERED: PANTOPRAZOLE 40 MG/10 ML VIAL IV SCH (09:00)
[2020-06-27] MEDS: ALBUTEROL NEBULIZED 2.5 MG/3 ML INHALATION SCH ×2 (09:29→11:10)
--- NOTE | 2020-06-27 10:08 | FL ---
EXAMINATION TYPE: FL UGI DATE OF EXAM: 06/27/2020 LIMITED UGI-ESOPHAGRAM: CLINICAL HISTORY: History of gastric sleeve surgery September 2017 with hiatal hernia and reflux. Nitin fundoplication surgery yesterday. TECHNIQUE: Limited UGI-esophagram is performed utilizing 50 oz of Isovue 370. A total of 11 seconds of fluoroscopic time was utilized during procedure. 20 spot images saved to PACS. FINDINGS: The patient swallowed contrast without difficulty or delay. Esophageal peristalsis and mo tility are within normal limits. There is good flow of contrast along the diaphragmatic hiatus into t he stomach remnant and subsequent flow into the efferent small bowel anastomotic loop, there is no ev idence of contrast extravasation to suggest leak. No persistent hiatal hernia is seen. Patient remain s asymptomatic. Tiny amount of free air under right hemidiaphragm noted. IMPRESSION: No evidence of leak or significant obstruction status post Sandeep fundoplication surgery yesterday.
[2020-06-27 11:21] VITALS: PULSE 72
--- NOTE | 2020-06-27 11:47 | P.DS ---
Providers Date of admission: 06/26/20 08:36 Expected date of discharge: 06/27/20 Attending physician: Lisy Andres Primary care physician: Connor Neel [facility] Course: Discharge diagnosis 1. Gastroesophageal reflux disease, with erosive esophagitis 2. Paraesophageal hiatal hernia, midline 3. Obesity due to excess calories, BMI of 32.0 4. History of sleeve gastrectomy Hospital course The patient is a 80 year-old male who presents with epigastric abdominal pain, dysphagia, history of sleeve gastrectomy, gastroesophageal reflux recalcitrant to medical therapy with a symptomatic diaphragmatic hiatal hernia. Preoperative workup including upper endoscopy demonstrated hiatal hernia with erosive esophagitis. Patient is status post Robotic-assisted da Abimael Xi laparoscopic reduction and repair of recurrent incarcerated paraesophageal hiatal hernia, 5 x 4 cm, with [place] Biopatch A 8 x 8 cm and Intraoperative esophagogastroscopy. Patient has tolerated surgery well. He had upper GI completed showing no evidence of leak or significant obstruction. Patient is tolerating a bariatric clear liquid diet. Pain is controlled. He is afebrile. He is ambulating. He is stable for discharge home. Physician Tie Presser note has been reviewed by physician. Signing provider agrees with the documented findings, assessment, and plan of care. Patient Condition at Discharge: Stable Plan - Discharge Summary Discharge Rx Participant: Yes New Discharge Prescriptions: New Acetaminophen Oral Susp [Tylenol] 1,000 mg PO Q4-6H PRN #400 ml PRN Reason: Pain Discontinued Multivitamins, Thera [Multivitamin (formulary)] 1 tab PO DAILY Omeprazole [PriLOSEC] 40 mg PO QAM Calcium Carb/Magnesium Hydrox [Rolaids Chewable Tablet] 1 - 2 tab PO DIRECTED PRN PRN Reason: GERD Discharge Medication List Acetaminophen Oral Susp [Tylenol] 1,000 mg PO Q4-6H PRN #400 ml 06/27/20 [Rx] [facility]Ref[place] [facility] [place] Activity/Diet/Wound Care/Special Instructions: Wear abdominal binder at all times for comfort. No lifting over 4 pounds in 4 weeks until Jul 24. November shower. No bath tub soaks for two weeks until Jul 10 Use ice along incisions for the today to prevent swelling. No straws or carbonated beverages Continue bariatric liquid diet Discharge Disposition: HOME SELF-CARE
[2020-06-27] MEDS: ENOXAPARIN 40 MG/0.4 ML SYRINGE SQ SCH ×2 (12:26→13:10)
[2020-06-27 13:40] VITALS: BMI 32.0
[2020-06-27 13:57] LABS: African American GFR (CKD) 130.4 (60.0-200.0); Anion Gap 8.7 mmol/L (4.00-12.00); Calcium 8.7 mg/dL (8.7-10.3); Carbon Dioxide 22.3 mmol/L (21.6-31.8); Magnesium 1.8 mg/dL (1.5-2.4); Non-African American GFR(CKD) 112.5 (60.0-200.0); Potassium 4.5 mmol/L (3.5-5.5)
[2020-06-28] MEDS ORDERED: bisacodyL 5 MG TABLET.DR PO PRN (08:00)
== END 2020-06-27 13:26 | disposition home or self-care (01) | DRG 327 ==
LOC: 2ORMAIN 08:36 → 5NMEDONC 13:19
PROVIDERS: ADMIT Surgery Plastic and Reconstructive Surgery; ATTEND Surgery Plastic and Reconstructive Surgery
PROC: 8E0W4CZ Robotic Assisted Procedure of Trunk Region, Percutaneous Endoscopic Approach (ICD-10-PCS; principal; 2020-06-26 10:15)
PROC: 0BUT4JZ Supplement Diaphragm with Synthetic Substitute, Percutaneous Endoscopic Approach (ICD-10-PCS; principal; 2020-06-26 10:15)
DX: K44.0 Diaphragmatic hernia with obstruction, without gangrene (principal); K22.10 Ulcer of esophagus without bleeding; E66.09 Other obesity due to excess calories; R16.0 Hepatomegaly, not elsewhere classified; Z68.32 Body mass index [BMI] 32.0-32.9, adult; I10 Essential (primary) hypertension; K21.00 Gastro-esophageal reflux disease with esophagitis, without bleeding; G47.30 Sleep apnea, unspecified; M19.90 Unspecified osteoarthritis, unspecified site; R13.10 Dysphagia, unspecified; Z87.891 Personal history of nicotine dependence; Z98.84 Bariatric surgery status; Z87.820 Personal history of traumatic brain injury; Z79.899 Other long term (current) drug therapy; Z82.49 Family history of ischemic heart disease and other diseases of the circulatory system; Z83.49 Family history of other endocrine, nutritional and metabolic diseases; Z83.79 Family history of other diseases of the digestive system; Z83.518 Family history of other specified eye disorder
CPT/HCPCS: 74240; 80051; 82310; 82565; 83735; 84100; 84520; 85025; 94640; 94760

== ENCOUNTER → 2020-07-05 | Outpatient (CLI) | payer MEDICAID ==
[2020-07-05 12:41] VITALS: BP 125/74; PULSE 89; RESP 18; TEMP 98; BMI 32.5
--- NOTE | 2020-07-05 13:04 | P.PN ---
Subjective Progress Note Date: 07/05/20 DATE OF SERVICE: 07/05/2020 CHIEF COMPLAINT: Status post hiatal hernia repair HISTORY OF PRESENT ILLNESS: Connor Pal is a 40-year-old gentleman status post sleeve gastrectomy 10/01/2017. He is 2 years out. He is status post hiatal hernia repair, . He is 2 weeks out following his hiatal heria repair. He lost 20+ pounds. He has occassional right upper back pain. At a height of 5 foot 10.25 inches, his ideal body weight is 173 pounds. Highest weight 317 pounds. Today he comes in 228 pounds from 240 pounds, 1 months ago. He has lost 13 pounds in 1 month. His body mass index is reduced from 45.3 to 32.5. Lifetime weight loss is 89 pounds. Lifetime percent excess weight is 62 %. PHYSICAL EXAM: VITAL SIGNS: 5 feet 10.25 inch, 228 pounds, body mass index 32.5 Vital Signs Temp 98 F 07/05/20 12:34 Pulse 89 07/05/20 12:34 Resp 18 07/05/20 12:34 BP 125/74 07/05/20 12:34 Pulse Ox GENERAL: Well-developed pleasant male in no acute distress. HEENT: No scleral icterus. Extraocular movements grossly intact. Moist buccal mucosa. No nasal drainage. Hears conversational speech. NECK: Supple without lymphadenopathy. No JVD distention. CHEST: Unlabored respirations with equal bilateral excursions. CARDIOVASCULAR: Regular rate and rhythm. Distal 2+ pulses. ABDOMEN: Soft, nontender. Nondistended. Incisions intact. MUSCULOSKELETAL: No clubbing or cyanosis. No edema. NEURO: No focal or lateralizing signs. Cranial nerves 2 through 12 grossly within normal limits. PSYCH: Appropriate affect. Alert and oriented to person, place and time. SKIN: Well perfused. Good skin turgor. STUDIES: Pictures described. ASSESSMENT: 1. Morbid obesity due to excess calories 2. BMI 45.2 down to 32.5 3. Hypertensive heart disease, resolved. 4. Gastroesophageal reflux disease, improved 5. Status post sleeve gastrectomy 6. Obstructive sleep apnea, resolved 7. Reactive hypoglycemia 8. Status post hiatal hernia repair PLAN: 1. May advance diet for sleeve gastrectomy 2. Recommend ultrasound for gallstones. Objective - Vital Signs Vital signs: Vital Signs Temp 98 F 07/05/20 12:34 Pulse 89 07/05/20 12:34 Resp 18 07/05/20 12:34 BP 125/74 07/05/20 12:34 Pulse Ox Intake & Output 07/04/20 07/05/20 07/05/20 18:59 06:59 18:59 Weight 103.419 kg
== END | disposition home or self-care (01) ==
LOC: BARWHC3 12:21
PROVIDERS: ATTEND Surgery Plastic and Reconstructive Surgery
DX: E66.01 Morbid (severe) obesity due to excess calories (principal); E16.2 Hypoglycemia, unspecified; K21.9 Gastro-esophageal reflux disease without esophagitis; Z98.84 Bariatric surgery status; Z68.32 Body mass index [BMI] 32.0-32.9, adult; Z98.890 Other specified postprocedural states
CPT/HCPCS: 99211

== ENCOUNTER → 2020-07-11 | Outpatient (CLI) | payer MEDICAID ==
--- NOTE | 2020-07-11 08:52 | US ---
EXAMINATION TYPE: US gallbladder DATE OF EXAM: 07/11/2020 COMPARISON: NONE CLINICAL HISTORY: R10.11 ABD PAIN. EXAM MEASUREMENTS: Liver Length: 13.7 cm Gallbladder Wall: 0.2 cm CBD: 0.3 cm Right Kidney: 12.3 x 4.8 x 5.6 cm Pancreas: Obscured by bowel gas Liver: wnl Gallbladder: wnl Evidence for sonographic Renteria's sign: no CBD: wnl Right Kidney: wnl IMPRESSION: 1. Normal right upper quadrant ultrasound
== END | disposition home or self-care (01) ==
LOC: RADUSWWP 07:37
PROVIDERS: ATTEND Surgery Plastic and Reconstructive Surgery
DX: R10.11 Right upper quadrant pain (principal)
CPT/HCPCS: 76705

== ENCOUNTER → 2021-02-14 | Outpatient (CLI) | payer MEDICAID ==
[2021-02-14 15:37] LABS: HCT 43.1 % (39.0-53.0); HGB 14.8 gm/dL (13.0-17.5); MCH 29.2 pg (25.0-35.0); MCHC 34.3 g/dL (31.0-37.0); MCV 85.3 fL (80.0-100.0); Mean Platelet Volume 8.1; Platelet Count 205 k/uL (150-450); RBC 5.06 m/uL (4.30-5.90); RDW 13.7 % (11.5-15.5); WBC 7.3 k/uL (3.8-10.6)
[2021-02-15 03:41] LABS: Hemoglobin A1C 5.3 % (4.0-6.0)
[2021-02-15 05:10] LABS: INR 0.97 (0.90-1.11); Partial Thromboplastin Time 27.1 sec (23.5-31.0); Prothrombin Time 10.6 sec (9.9-11.9)
[2021-02-15 06:53] LABS: % Iron Saturation 17.66 (15.00-50.00); African American GFR (CKD) 97.5 (60.0-200.0); Albumin 4.8 g/dL (3.80-4.90); Albumin/Globulin Ratio 2.09 (1.60-3.17); BUN/Creat Ratio 10.91 Ratio (12.00-20.00); Calcium 9.7 mg/dL (8.7-10.3); Chol/HDL Ratio 3.19; Globulin 2.3 g/dL (1.6-3.3); LDL Cholesterol,Calculated 85.4 mg/dL (0.0-131.0); Magnesium 1.8 mg/dL (1.5-2.4); Non-African American GFR(CKD) 84.1 (60.0-200.0); Phosphorus 3.6 mg/dL (2.4-5.1); Potassium 4.3 mmol/L (3.5-5.5); Total Bilirubin 0.6 mg/dL (0.3-1.2); Total Protein 7.1 g/dL (6.2-8.2); VLDL Calculation 30.6 mg/dL (5.00-40.00)
[2021-02-15 07:00] LABS: Ferritin 128.5 ng/mL (22.0-322.0)
== END | disposition home or self-care (01) ==
LOC: LABMAIN 15:07
PROVIDERS: ATTEND Surgery Plastic and Reconstructive Surgery
DX: E66.01 Morbid (severe) obesity due to excess calories (principal); E89.1 Postprocedural hypoinsulinemia; D50.8 Other iron deficiency anemias; K90.89 Other intestinal malabsorption; E55.9 Vitamin D deficiency, unspecified; K74.1 Hepatic sclerosis; N19 Unspecified kidney failure; K50.90 Crohn's disease, unspecified, without complications
CPT/HCPCS: 36415; 80053; 80061; 82306; 82607; 82728; 82746; 83036; 83540; 83550; 83735; 83970; 84100; 84134; 84443; 85027; 85610; 85730

== ENCOUNTER → 2021-03-01 | Outpatient (CLI) | payer MEDICAID ==
[2021-03-01 10:39] LABS: HGB 15.6 gm/dL (13.0-17.5); MCH 29.5 pg (25.0-35.0); MCHC 33.9 g/dL (31.0-37.0); MCV 87.1 fL (80.0-100.0); Mean Platelet Volume 8.3; Platelet Count 193 k/uL (150-450); RBC 5.29 m/uL (4.30-5.90); RDW 13.7 % (11.5-15.5); WBC 6.8 k/uL (3.8-10.6)
[2021-03-01 10:46] LABS: ALT 22 U/L (4-49); AST 25 U/L (17-59); African American GFR (CKD) >90 (>60 ml/min/1.73 sqM); Albumin 4.8 g/dL (3.5-5.0); Alkaline Phosphatase 72 U/L (38-126); Anion Gap 7 mmol/L; Blood Urea Nitrogen 11 mg/dL (9-20); Calcium 9.9 mg/dL (8.4-10.2); Carbon Dioxide 26 mmol/L (22-30); Chloride 105 mmol/L (98-107); Glucose 102 mg/dL (74-99); Non-African American GFR(CKD) >90 (>60 ml/min/1.73 sqM); Phosphorus 3.3 mg/dL (2.5-4.5); Potassium 4.4 mmol/L (3.5-5.1); Sodium 138 mmol/L (137-145); Total Bilirubin 0.6 mg/dL (0.2-1.3); Total Protein 7.1 g/dL (6.3-8.2)
[2021-03-01 10:54] LABS: INR 0.9 (<1.2); Partial Thromboplastin Time 23.9 sec (22.0-30.0); Prothrombin Time 9.8 sec (9.0-12.0)
--- NOTE | 2021-03-01 13:07 | FL ---
EXAMINATION TYPE: FL barium swallow DATE OF EXAM: 03/01/2021 CLINICAL INDICATION: 40-year-old male with dysphagia, status post sleeve gastrectomy and hiatal herni a repair. R13.10, worsening indigestion and heartburn. COMPARISON: 06/27/2020 Total Fluoroscopy Time: 2 minutes 19 seconds Total images: 40. FINDINGS: Given the patient's previous bariatric surgery, thin barium was utilized. The swallowing mechanism is normal and hypopharyngeal anatomy is preserved. The cervical and thoracic portions have a normal course and caliber and normal motility. The mucosa i s normal and no persistent filling defect is encountered allowing for single contrast technique. There is mild delay in clearance of contrast from the distal esophagus. Repeat dry swallows promotes clearance. There is a recurrent small sliding hiatal hernia. Valsalva maneuver elicits at least mild gastroesoph ageal reflux. Post surgical changes related to sleeve gastrectomy. IMPRESSION: Recurrent small sliding hiatal hernia. Valsalva maneuver elicits at least mild gastroesophageal reflu x during the course of the exam. Status post sleeve gastrectomy.
[2021-03-01 18:17] LABS: Hemoglobin A1C 5.3 % (4.0-6.0)
[2021-03-02 10:22] LABS: % Iron Saturation 26.29 (15.00-50.00); Chol/HDL Ratio 3.59; Cholesterol 183 mg/dL (0-200); Iron 92 ug/dL (65-175); LDL Cholesterol,Calculated 99.8 mg/dL (0.0-131.0); Total Iron Binding Capacity 350 ug/dL (228-460)
[2021-03-02 12:26] LABS: Zinc, Serum 92 ug/dL (60-130)
[2021-03-02 13:20] LABS: Ferritin 142.1 ng/mL (22.0-322.0)
[2021-03-02 14:47] LABS: Folate, Serum >24.0 ng/mL
[2021-03-05 07:53] LABS: Vitamin A 71 ug/dL (38-106)
[2021-03-05 14:52] LABS: Vit B1(Thiamine) 81 ug/L (38-122)
== END | disposition home or self-care (01) ==
LOC: RADUSWWP 09:01
PROVIDERS: ATTEND Surgery Plastic and Reconstructive Surgery
DX: K80.10 Calculus of gallbladder with chronic cholecystitis without obstruction (principal); K44.9 Diaphragmatic hernia without obstruction or gangrene; K21.9 Gastro-esophageal reflux disease without esophagitis; Z98.84 Bariatric surgery status
CPT/HCPCS: 74220; 80053; 80061; 82306; 82525; 82607; 82728; 82746; 83036; 83540; 83550; 83735; 83970; 84100; 84134; 84255; 84425; 84443; 84590; 84630; 85027; 85610; 85730

== ENCOUNTER → 2021-03-27 | Outpatient (CLI) | payer MEDICAID ==
--- NOTE | 2021-03-27 15:56 | NM ---
EXAMINATION TYPE: NM hepatobiliary w EF DATE OF EXAM: 03/27/2021 COMPARISON: Gallbladder ultrasound 07/11/2020 HISTORY: K80.10 Calculus of gallbladder with chronic TECHNIQUE: After the intravenous administration of 4.24 mCi Tc 99m Mebrofenin hepatobiliary scintigra phy is performed. Immediate images post injection. FINDINGS: There is satisfactory initial accumulation of tracer by the liver. The gallbladder is visualized wit hin 8 minutes. The small bowel activity is noted on delayed images. At one hour 8 ounces of oral en sure plus is given to mimic CCK and gallbladder ejection fraction is calculated at 87 %, slightly abo ve the upper limit of the normal range. Therefore there is no scintigraphic evidence of cystic or co mmon bile duct obstruction to suggest acute cholecystitis. IMPRESSION: Findings could possibly represent hyperdynamic gallbladder, there is some delayed visuali zation of the small bowel
== END | disposition home or self-care (01) ==
LOC: RADNMMAIN 12:47
PROVIDERS: ATTEND Surgery Plastic and Reconstructive Surgery
DX: K80.10 Calculus of gallbladder with chronic cholecystitis without obstruction (principal)
CPT/HCPCS: 78226; A9537

== ENCOUNTER → 2021-06-04 | Outpatient (CLI) | payer MEDICAID ==
[2021-06-04 13:07] LABS: Basophils # (A) 0.1 k/uL (0-0.2); Basophils % (A) 1 %; Eosinophils # (A) 0.2 k/uL (0-0.7); Eosinophils % (A) 2 %; HCT 45.7 % (39.0-53.0); HGB 15.8 gm/dL (13.0-17.5); Lymphocytes % (A) 25 %; MCH 28.6 pg (25.0-35.0); MCHC 34.5 g/dL (31.0-37.0); Mean Platelet Volume 7.7; Monocytes # (A) 0.4 k/uL (0-1.0); Monocytes % (A) 5 %; Neutrophils # (A) 5.2 k/uL (1.3-7.7); Neutrophils % (A) 65 %; Platelet Count 249 k/uL (150-450); RBC 5.51 m/uL (4.30-5.90); RDW 12.9 % (11.5-15.5); WBC 8.1 k/uL (3.8-10.6)
[2021-06-04 13:11] LABS: ALT 27 U/L (4-49); AST 30 U/L (17-59); African American GFR (CKD) >90 (>60 ml/min/1.73 sqM); Albumin 4.8 g/dL (3.5-5.0); Alkaline Phosphatase 73 U/L (38-126); Anion Gap 9 mmol/L; Blood Urea Nitrogen 13 mg/dL (9-20); Calcium 9.9 mg/dL (8.4-10.2); Carbon Dioxide 27 mmol/L (22-30); Chloride 103 mmol/L (98-107); Glucose 105 mg/dL (74-99); Non-African American GFR(CKD) >90 (>60 ml/min/1.73 sqM); Sodium 139 mmol/L (137-145); Total Bilirubin 0.6 mg/dL (0.2-1.3); Total Protein 7.9 g/dL (6.3-8.2)
== END | disposition home or self-care (01) ==
LOC: LABPAT 11:18
PROVIDERS: ATTEND Surgery Plastic and Reconstructive Surgery
DX: Z01.812 Encounter for preprocedural laboratory examination (principal)
CPT/HCPCS: 36415; 80053; 85025

== ENCOUNTER 2021-06-11 08:48 | Day surgery (SDC) | payer MEDICAID ==
[2021-06-04 10:37] VITALS: BMI 29.9
[~2021-06-11 08:48] MED LIST changes: -ACETAMINOPHEN TAB 500 MG TAB PO STA; -GABAPENTIN 300 MG CAP PO STA; -HEPARIN SODIUM,PORCINE 5,000 UNIT/ML 1 ML VIAL SQ STA; -HYDROmorphone 0.5 MG/0.5 ML SYRINGE IVP PRN; +MIDAZOLAM 2 MG/2 ML VIAL IV PRN; -SCOPOLAMINE 1.5MG/72HR PATCH TRANSDERM ONE
[2021-06-11] MEDS ORDERED: INDOCYANINE GREEN 25 MG VIAL IV STA (09:21)
[2021-06-11] MEDS ORDERED: GABAPENTIN 300 MG CAP PO STA (09:21)
[2021-06-11] MEDS ORDERED: ACETAMINOPHEN TAB 500 MG TAB PO STA (09:21)
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
[2021-06-11] MEDS ORDERED: MELOXICAM 7.5 MG TAB PO SCH (09:30)
[2021-06-11] MEDS: LACTATED RINGERS 1,000 ML IV SCH ×2 (09:32→09:47)
[2021-06-11] MEDS ORDERED: HEPARIN SODIUM,PORCINE/PF 5,000 UNIT/0.5 ML SYRINGE SQ ONE (09:40)
[2021-06-11] MEDS ORDERED: ROCURONIUM 10 MG/ML (5 ML VIAL) IV ONE (09:43)
[2021-06-11] MEDS ORDERED: MIDAZOLAM 2 MG/2 ML VIAL ONE (09:43)
[2021-06-11] MEDS ORDERED: LIDOCAINE 1% INJ 10MG/ML (20 ML MDV) ONE (09:43)
[2021-06-11] MEDS ORDERED: NEOSTIGMINE 1 MG/ML 10 ML VIAL ONE (09:43)
[2021-06-11] MEDS ORDERED: GLYCOPYRROLATE 0.2 MG/ML 2 ML VIAL ONE (09:43)
[2021-06-11] MEDS ORDERED: SUCCINYLCHOLINE CHLORIDE 100 MG/5 ML SYR IV ONE (09:43)
[2021-06-11] MEDS ORDERED: INDOCYANINE GREEN 25 MG VIAL IV ONE (09:43)
[2021-06-11] MEDS ORDERED: PROPOFOL 10 MG/ML 20 ML VIAL IV ONE (09:43)
[2021-06-11] MEDS ORDERED: fentaNYL (PF) 50 MCG/ML 2 ML AMP ONE (09:43)
[2021-06-11] MEDS ORDERED: HEPARIN SODIUM,PORCINE 5,000 UNIT/ML 1 ML VIAL ONE (09:43)
[2021-06-11] MEDS ORDERED: BUPIVACAIN-EPI 0.25%-1:200,000 30 ML VIAL SQ ONE (09:49)
--- NOTE | 2021-06-11 10:56 | P.OP ---
Date of Procedure: 06/11/21 Description of Procedure: SURGEON: KWAME LANDIS MD PREOPERATIVE DIAGNOSES: 1. Chronic cholecystitis 2. Right upper quadrant abdominal pain 3. Gastroesophageal reflux disease 4. Obesity due to excess calories, BMI 33.1 5. Status post sleeve gastrectomy POSTOPERATIVE DIAGNOSES: 1. Chronic cholecystitis 2. Right upper quadrant abdominal pain 3. Gastroesophageal reflux disease 4. Obesity due to excess calories, BMI 33.1 5. Status post sleeve gastrectomy 6. Fatty liver disease OPERATION: Robotic-assisted da Abimael Xi laparoscopic cholecystectomy, multiport with FIREFLY ESTIMATED BLOOD LOSS: 5 mL. SPECIMENS REMOVED: Gallbladder. COMPLICATIONS: None. OPERATIVE FINDINGS: 1. Thickened gallbladder wall consistent with cholecystitis. 2. Fusiform body of the gallbladder 3. Fatty liver disease INDICATIONS: The patient is a 41-year-old male who presents with symptomatic gallstones. Robotic assisted laparoscopic approach was described. Benefits and risks of the procedure including but not limited to bleeding, infection, injury to the biliary tree was described. Informed consent was obtained. DESCRIPTION OF PROCEDURE: Patient was brought to the operating room, placed in supine position. After general induction, the abdomen had been prepped and draped in standard sterile fashion. The robotic da Abimael XI system was primed. After a timeout protocol was performed, the patient had been prepped and draped in standard sterile fashion. The patient was injected with indocyanine green. A 5 mm 0 degrees laparoscopic trocar entry was performed along the left upper quadrant. The abdomen insufflated to 15 mmHg pressure which was tolerated well. Diagnostic laparoscopy demonstrated no injury to bowel viscera or mesentery. The liver surface that features of fatty liver disease. Next, two 8 mm robotic ports were placed along the right upper abdomen. The camera 8-mm port was maintained along the epigastrium. Another 8 mm port was placed along the left upper abdominal wall after exchanging the 5 mm port. Please note that the ports were placed at least 10 to 15 cm away from the target anatomy of the gallbladder. The robot was docked along the left lateral abdomen. The patient was repositioned in reverse Trendelenburg position. Using a grasper for arm 3, a grasper for arm 4, including hook cautery for arm 1, the robotic system was docked and primed as described. Instruments were interchanged by the day care assistant including hook cautery, Bovie cautery and clip appliers. I had sat at the console. The gallbladder had fusiform of contracted body and dilated infundibulum. The gallbladder wall was thickened. Next attention was brought to the infundibulum and cystic structures. The infundibulum and cystic duct were dissected free from surrounding tissues. The cystic duct was isolated. FIREFLY was used to identify the cystic artery and cystic structures. A critical view of safety was obtained. Large PLASTIC clips were used throughout the entire case. Using a clip sign language interpreter, 2 clips were placed at the junction of the infundibulum and cystic duct. The cystic duct was divided between clips. Next, the cystic artery was similarly clipped and cauterized. Electro-Bovie cautery was used to remove the gallbladder from the hepatic fossa. Hemostasis was checked and found to be adequate. The robot was undocked. I re-scrubbed into the case. Using a 10 mm Endo Catch bag via the left upper quadrant incision, the specimen was removed from the abdominal cavity. All pneumoperitoneum instruments were evacuated from the abdominal cavity. The incisions were reapproximated using 4-0 Monocryl in an interrupted subcuticular fashion. Fascial defects were less than 8 mm in size. Please note along the trocar sites, local anesthetic was placed as a field block prior to insertion of all instruments. Liquid glue was applied to the skin. At the end of the procedure needle, sponge, and instrument count had been verified correct by the surgical rn. The patient was transferred to postanesthesia care unit in stable condition. Intraoperative films were shared with the patient's family. Plan - Discharge Summary Discharge Rx Participant: No New Discharge Prescriptions: New Simethicone [Gas-X] 125 mg PO AC-TID PRN #20 capsule PRN Reason: Pain Ibuprofen [Motrin] 600 mg PO Q8HR PRN #30 tab PRN Reason: Pain Acetaminophen Tab [Tylenol Tab] 1,000 mg PO Q6HR PRN #30 tablet PRN Reason: Pain Continue Omeprazole [PriLOSEC] 40 mg PO DAILY Multivitamins, Thera [Multivitamin (formulary)] 1 tab PO DAILY Discharge Medication List Multivitamins, Thera [Multivitamin (formulary)] 1 tab PO DAILY 06/04/21 [History] Omeprazole [PriLOSEC] 40 mg PO DAILY 06/04/21 [History] Acetaminophen Tab [Tylenol Tab] 1,000 mg PO Q6HR PRN #30 tablet 06/11/21 [Rx] Ibuprofen [Motrin] 600 mg PO Q8HR PRN #30 tab 06/11/21 [Rx] Simethicone [Gas-X] 125 mg PO AC-TID PRN #20 capsule 06/11/21 [Rx] [facility]ment(s[facility]Ref[place] [facility] [place] [place] [facility] [place] Patient Instructions/Handouts: Laparoscopic Cholecystectomy (GEN), *[facility]gery [facility] - Managing Your Pain After Surgery Without Opioids Activity/Diet/Wound Care/Special Instructions: Recommend low-fat diet for the next 2 days. No lifting over 10 pounds in 2 weeks until Jun 25. May shower. No bath tub soaks for two weeks until Jun 25. Diet as tolerated. Use Tylenol, simethicone and ibuprofen or Aleve scheduled for the next 24-48 hours for best pain relief. Use ice along incisions for today to prevent swelling. Discharge Disposition: HOME SELF-CARE
[2021-06-11] MEDS: HYDROmorphone 0.5 MG/0.5 ML SYRINGE IVP PRN ×3 (10:57→11:34)
[2021-06-11 11:00] VITALS: TEMP 96.9
[2021-06-11 12:18] VITALS: RESP 16
[2021-06-11] MEDS ORDERED: IBUPROFEN 200 MG TAB PO ONE (12:23)
[2021-06-11 12:41] VITALS: BP 122/80; PULSE 64
== END 2021-06-11 13:01 | disposition home or self-care (01) ==
LOC: OR 08:48
PROVIDERS: ATTEND Surgery Plastic and Reconstructive Surgery
DX: K81.1 Chronic cholecystitis (principal); K21.9 Gastro-esophageal reflux disease without esophagitis; M19.90 Unspecified osteoarthritis, unspecified site; Z87.820 Personal history of traumatic brain injury; R43.9 Unspecified disturbances of smell and taste; E66.09 Other obesity due to excess calories; Z68.33 Body mass index [BMI] 33.0-33.9, adult; Z98.84 Bariatric surgery status; K76.0 Fatty (change of) liver, not elsewhere classified; Z98.890 Other specified postprocedural states; Z87.891 Personal history of nicotine dependence; Z82.49 Family history of ischemic heart disease and other diseases of the circulatory system; Z83.49 Family history of other endocrine, nutritional and metabolic diseases; Z79.899 Other long term (current) drug therapy
CPT/HCPCS: 47563; S2900; 88304

== ENCOUNTER → 2022-02-20 | Outpatient (CLI) | payer MEDICAID ==
--- NOTE | 2022-02-20 12:01 | FL ---
EXAMINATION TYPE: FL barium swallow DATE OF EXAM: 02/20/2022 COMPARISON: 03/01/2021 HISTORY: Reflux, dysphasia TECHNIQUE: Single contrast technique is utilized with thin and thick barium. Real-time observation wa s performed. Horizontal drinking was performed FINDINGS: Esophagus dilates to normal caliber to the distal esophagus. Distal esophagus appears somew hat prominent. There is prompt spill through the distal esophagus into the stomach. There may be some gastric folds are identified in later images suggesting small sliding-type hiatal hernia may be pres ent. The gastroesophageal junction opens to normal caliber. Barium readily spills into the duodenum. Note is made of reflux within the distal esophagus or esophageal drinking position. There is complete stripping of the esophageal bolus and horizontal drinking position. IMPRESSION: 1. No stenosis through the esophagus. 2. Small hiatal hernia may be present, this appears stable from comparison. 3. Gastroesophageal reflux.
== END | disposition home or self-care (01) ==
LOC: RADUSWWP 11:04
PROVIDERS: ATTEND Surgery Plastic and Reconstructive Surgery
DX: K44.9 Diaphragmatic hernia without obstruction or gangrene (principal); K21.9 Gastro-esophageal reflux disease without esophagitis
CPT/HCPCS: 74220

== ENCOUNTER → 2022-02-27 | Outpatient (CLI) | payer MEDICAID ==
--- NOTE | 2022-02-27 14:51 | P.BASOAP ---
Subjective Progress Note Date: 02/27/22 He complains of fatigue and sudden onset fainting spells. He does not have a food diary journal. Inquired of skilled nursing side effects with omeprazole. Reports is no longer effective. Options of medications, hiatal hernia repair, LINX procedure and gastric bypass discussed. Recommend correction of current fatigue spells prior to surgeries. Assessment/Plan Plan: Date: Initial Weight: 143.925 kg Initial BMI: Current Weight: Current BMI: Type of Surgery: Total Volume in Band: Previous Volume: Volume Removed: Volume Added: Band Size:
[2022-02-27 15:06] VITALS: BMI 31.5
[2022-02-27 16:19] VITALS: BP 119/80; PULSE 80; RESP 16; TEMP 98.1
== END | disposition home or self-care (01) ==
LOC: BARWHC3 13:35
PROVIDERS: ATTEND Surgery Plastic and Reconstructive Surgery
DX: E66.01 Morbid (severe) obesity due to excess calories (principal); R53.83 Other fatigue; Z68.41 Body mass index [BMI] 40.0-44.9, adult
CPT/HCPCS: 99211

== ENCOUNTER → 2022-05-20 | Outpatient (CLI) | payer MEDICAID ==
[2022-05-20 23:49] LABS: Basophils # (A) 0.06 X 10*3/uL (0.00-0.10); Basophils % (A) 0.7 %; Eosinophils # (A) 0.16 X 10*3/uL (0.04-0.35); Eosinophils % (A) 1.8 %; HCT 44.1 % (39.6-50.0); HGB 14.5 g/dL (13.0-17.0); Immature Grans, Automated 0.2 %; Lymphocytes # (A) 2.26 X 10*3/uL (0.90-5.00); Lymphocytes % (A) 25.2 %; MCH 28.5 pg (27.0-32.0); MCHC 32.9 g/dL (32.0-37.0); MCV 86.6 fL (80.0-97.0); Monocytes # (A) 0.63 X 10*3/uL (0.20-1.00); NRBC Per 100 WBC 0 /100 WBCS (0.0-0.0); Neutrophils # (A) 5.84 X 10*3/uL (1.80-7.70); Neutrophils % (A) 65.1 %; Platelet Count 230 X 10*3/uL (140-440); RBC 5.09 X 10*6/uL (4.40-5.60); RDW 12.5 % (11.5-14.5); WBC 8.97 X 10*3/uL (4.50-10.00)
[2022-05-21 00:08] LABS: African American GFR (CKD) 125.3 (60.0-200.0); Albumin 4.6 g/dL (3.8-4.9); Albumin/Globulin Ratio 2.07 (1.60-3.17); Anion Gap 9.4 mmol/L (10.00-18.00); BUN/Creat Ratio 17.02 Ratio (12.00-20.00); Blood Urea Nitrogen 14.5 mg/dL (9.0-27.0); Calcium 9.3 mg/dL (8.7-10.3); Carbon Dioxide 26.5 mmol/L (20.0-27.5); Globulin 2.2 g/dL (1.6-3.3); Non-African American GFR(CKD) 108.1 (60.0-200.0); Potassium 4.5 mmol/L (3.5-5.5); Total Bilirubin 0.4 mg/dL (0.30-1.20); Total Protein 6.8 g/dL (6.2-8.2)
== END | disposition home or self-care (01) ==
LOC: LABPAT 14:51
PROVIDERS: ATTEND Surgery Plastic and Reconstructive Surgery
DX: Z01.818 Encounter for other preprocedural examination (principal)
CPT/HCPCS: 80053; 85025; 93005

== ENCOUNTER → 2022-09-26 | Outpatient (CLI) | payer MEDICAID ==
[2022-09-26 13:03] LABS: ALT 37 U/L (4-49); AST 30 U/L (17-59); African American GFR (CKD) >90 (>60 ml/min/1.73 sqM); Albumin 4.7 g/dL (3.5-5.0); Alkaline Phosphatase 61 U/L (38-126); Anion Gap 8 mmol/L; Blood Urea Nitrogen 10 mg/dL (9-20); Carbon Dioxide 28 mmol/L (22-30); Chloride 106 mmol/L (98-107); Non-African American GFR(CKD) >90 (>60 ml/min/1.73 sqM); Potassium 4.2 mmol/L (3.5-5.1); Sodium 142 mmol/L (137-145)
[2022-09-26 13:15] LABS: Ionized Calcium 5.2 mg/dL (4.5-5.3)
[2022-09-26 13:17] LABS: T4, Free (Free Thyroxine) 1.01 ng/dL (0.78-2.19)
[2022-09-26 20:26] LABS: Insulin Level 10.8 mIU/mL (3.0-25.0)
[2022-09-26 21:54] LABS: Thyroid Peroxidase Antibodies <9.0 U/mL (0.0-33.0)
== END | disposition home or self-care (01) ==
LOC: LABWHC1 11:46
PROVIDERS: ATTEND Internal Medicine Endocrinology, Diabetes & Metabolism
DX: R73.9 Hyperglycemia, unspecified (principal)
CPT/HCPCS: 36415; 80051; 80377; 82010; 82024; 82040; 82306; 82330; 82533; 82565; 82607; 83525; 84075; 84432; 84439; 84443; 84450; 84460; 84520; 86376; 86800

== ENCOUNTER → 2023-01-22 | Outpatient (CLI) | payer MEDICAID ==
[2023-01-22 16:24] LABS: INR 0.9 (<1.2); Partial Thromboplastin Time 23.8 sec (22.0-30.0); Prothrombin Time 9.8 sec (9.0-12.0)
[2023-01-22 22:53] LABS: MCHC 31.9 d/dL (32.0-37.0); MCV 87.9 FL (80.0-97.0); Mean Platelet Volume 11.4 FL (9.5-12.2); NRBC Per 100 WBC 0 X 10*3/uL (0.00-0.01); Platelet Count 211 X 10*3/uL (140-440); RBC 5.35 X 10*6/uL (4.40-5.60); RDW 12.7 % (11.5-14.5); WBC 6.62 X 10*3/uL (4.50-10.00)
[2023-01-23 00:51] LABS: % Iron Saturation 15.85 (15.00-50.00); ALT 23 U/L (10-49); AST 20 U/L (14-35); Albumin 4.9 d/dL (3.8-4.9); Albumin/Globulin Ratio 2.13 Ratio (1.60-3.17); Alkaline Phosphatase 70 U/L (41-126); Blood Urea Nitrogen 11.5 mg/dL (9.0-27.0); Calcium 10.4 mg/dL (8.7-10.3); Chloride 105 mmol/L (96-109); Chol/HDL Ratio 3.49 Ratio; Globulin 2.3 d/dL (1.6-3.3); Glucose 112 mg/dL (70-110); Iron 65 UG/DL (65-175); LDL Cholesterol,Calculated 95.2 mg/dL (0.0-131.0); Magnesium 2.1 mg/dL (1.5-2.4); Phosphorus 3.2 mg/dL (2.4-5.1); Potassium 4.9 mmol/L (3.5-5.5); Sodium 143 mmol/L (135-145); Total Bilirubin 0.4 mg/dL (0.3-1.2); Total Iron Binding Capacity 410 UG/DL (228-460); Total Protein 7.2 d/dL (6.2-8.2)
[2023-01-23 01:31] LABS: Prealbumin 31.3 mg/dL (18.0-42.0)
[2023-01-23 09:15] LABS: Zinc, Serum 87 ug/dL (60-130)
[2023-01-24 06:12] LABS: Vitamin A 83 ug/dL (38-106)
== END | disposition home or self-care (01) ==
LOC: LABWHC1 14:27
PROVIDERS: ATTEND Surgery Plastic and Reconstructive Surgery
DX: E66.01 Morbid (severe) obesity due to excess calories (principal); D50.8 Other iron deficiency anemias; K91.2 Postsurgical malabsorption, not elsewhere classified; E44.0 Moderate protein-calorie malnutrition; E44.1 Mild protein-calorie malnutrition; E55.9 Vitamin D deficiency, unspecified; K74.1 Hepatic sclerosis; E45 Retarded development following protein-calorie malnutrition; N19 Unspecified kidney failure; T56.894A Toxic effect of other metals, undetermined, initial encounter; K50.90 Crohn's disease, unspecified, without complications
CPT/HCPCS: 36415; 80053; 80061; 82525; 82607; 82728; 82746; 83036; 83540; 83550; 83735; 83970; 84100; 84134; 84255; 84425; 84443; 84590; 84630; 85027; 85610; 85730

== ENCOUNTER 2023-02-24 09:02 | Day surgery (SDC) | payer MEDICAID ==
[2023-02-18 10:31] VITALS: BMI 29.9
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
[~2023-02-24 09:02] MED LIST changes: -DEXAMETHASONE SOD PHOSPHATE 4 MG/ML 1 ML VIAL IV ONE; +LACTATED RINGERS 1,000 ML IV SCH; -MIDAZOLAM 2 MG/2 ML VIAL IV PRN; -ONDANSETRON 4 MG/2 ML VIAL IVP ONE
[2023-02-24 09:23] VITALS: RESP 16; TEMP 97.1
[2023-02-24 09:40] LABS: Glucose,Whole Blood 82 mg/dL (70-110)
[2023-02-24] MEDS ORDERED: PROPOFOL 10 MG/ML 20 ML VIAL IV ONE (10:20)
[2023-02-24] MEDS ORDERED: LIDOCAINE 2% INJ 20 MG/ML (2 ML VIAL) ONE (10:20)
--- NOTE | 2023-02-24 11:01 | P.PCN ---
Date of Procedure: 02/24/23 Description of Procedure: PREOPERATIVE DIAGNOSIS: Abnormal stool function Change in bowel habits POSTOPERATIVE DIAGNOSIS: Microscopic colitis OPERATION: Colonoscopy to the cecum, ileocecal valve and appendiceal orifice. Colonoscopy with random cold forceps biopsies for microscopic colitis SURGEON: Lisy Andres MD. ANESTHESIA: MAC. INDICATIONS: The patient is a 42-year-old female who presents with altered stools including change in bowel habits. Benefits and risks were described and informed consent was obtained. DESCRIPTION OF PROCEDURE: The patient had undergone Sutab. The patient had been brought into the operating room and laid in the left lateral decubitus position. After adequate intravenous sedation, the rectum was examined with 2% lidocaine jelly. No external hemorrhoids were encountered. The prostate was unremarkable The rectal tone was within normal limits. No lesions were palpated in the rectal vault. An Olympus colonoscope was advanced until the cecum, ileocecal valve and appendiceal orifice were clearly viewed. The prep was fair. No scattered diverticulosis was encountered. No colonic polyps were found. Cold forceps biopsies randomly were obtained for microscopic colitis. Retroflexion of the scope demonstrated grade 1 internal hemorrhoids without active bleeding or inflammation. The colon was desufflated. The patient had tolerated the procedure well. Withdrawal time was over 6 minutes. FINDINGS: Aronchick preparation quality scale 2 (1-5) Internal hemorrhoids, grade 1 No external prolapsed hemorrhoids. No arteriovenous malformations. No adenomatous polyps. Cold forceps biopsies obtained for microscopic colitis RECOMMENDATIONS: Lower endoscopy in 5 years, 2027 Plan - Discharge Summary Discharge Rx Participant: No New Discharge Prescriptions: New Lactulose 20 gm PO DAILY #480 ml Continue Omeprazole [PriLOSEC] 40 mg PO QAM Multivitamins, Thera [Multivitamin (formulary)] 1 tab PO DAILY metFORMIN HCL [Glucophage] 500 mg PO BID Magnesium (Unknown Dose) 1 tab PO DAILY Zinc Gluconate [Zinc] 50 mg PO DAILY Discharge Medication List Multivitamins, Thera [Multivitamin (formulary)] 1 tab PO DAILY 06/04/21 [Histor y] Omeprazole [PriLOSEC] 40 mg PO QAM 06/04/21 [History] metFORMIN HCL [Glucophage] 500 mg PO BID 01/29/23 [History] Magnesium (Unknown Dose) 1 tab PO DAILY 02/18/23 [History] Zinc Gluconate [Zinc] 50 mg PO DAILY 02/18/23 [History] Lactulose 20 gm PO DAILY #480 ml 02/24/23 [Rx] Follow up Appointment(s)/Referral(s): [facility] [NON-STAFF] - 03/12/23 Patient Instructions/Handouts: Moderate Sedation (DC), Hiatal Hernia (DC) Activity/Diet/Wound Care/Special Instructions: Repeat colonoscopy in 5 years, 2027 Discharge Disposition: HOME SELF-CARE
--- NOTE | 2023-02-24 11:03 | P.PCN ---
Date of Procedure: 02/24/23 Description of Procedure: PREOPERATIVE DIAGNOSIS: Hiatal hernia Status post sleeve gastrectomy. Gastroesophageal reflux disease. Epigastric abdominal pain. POSTOPERATIVE DIAGNOSIS: Gastroesophageal reflux disease with erosive esophagitis Status post sleeve gastrectomy. Erosive esophagitis, chronic. Diaphragmatic hiatal hernia without obstruction. Chronic superficial gastritis. OPERATION: Esophagogastroduodenoscopy with cold forceps biopsies along the antrum and esophagus SURGEON: Lisy Andres MD ANESTHESIA: MAC. INDICATIONS: The patient is a 42-year-old male who presents with a history of sleeve gastrectomy with abdominal pain including gastric subcu reflux disease. She is over 5 years out from her bariatric procedure. Benefits and risks of the procedure were described. Informed consent was obtained. DESCRIPTION: The patient was brought into the endoscopy suite and laid in the left lateral decubitus position. An Olympus gastroscope was passed along the posterior oropharynx down to the distal esophagus where the squamocolumnar junction was at 37 centimeters from the incisors remarkable for chronic erosive esophagitis, LA grade A without ulceration. The stomach was entered where she had a 4-cm hiatal hernia with a diaphragmatic hiatus found at 43 cm. The sleeve reservoir mode rately large allowing easy retroflexion of the scope to view the lower esophageal valve. Chronic gastritis albeit mild was found along the antrum with cold biopsies obtained. The first through third portion of the duodenum was examined and biopsies obtained. The scope again had easily retroflexed along the antrum. The stomach was desufflated. The patient tolerated the procedure well. FINDINGS: No acute ulceration found along her sleeve. No corkscrewing sleeve gastrectomy. Squamocolumnar junction at 37 cm from the incisors. Diaphragmatic hiatus at 41 cm. Sleeve gastrectomy allowing retroflexion of the gastroscope to view the lower esophageal valve. Hiatal hernia 4 cm, fixed. LA grade C erosive esophagitis with biopsies obtained Duodenitis with biopsies obtained Chronic gastritis with biopsies obtained RECOMMENDATIONS: Upper endoscopy as needed. May benefit from antireflux operation. Continue with current therapy.
[2023-02-24 11:10] VITALS: BP 118/72; PULSE 70
== END 2023-02-24 12:25 | disposition home or self-care (01) ==
LOC: ORWHC2ENDO 09:02
PROVIDERS: ATTEND Surgery Plastic and Reconstructive Surgery
DX: K29.50 Unspecified chronic gastritis without bleeding (principal); K52.839 Microscopic colitis, unspecified; K21.00 Gastro-esophageal reflux disease with esophagitis, without bleeding; K44.9 Diaphragmatic hernia without obstruction or gangrene; K64.0 First degree hemorrhoids; Z79.84 Long term (current) use of oral hypoglycemic drugs; Z79.899 Other long term (current) drug therapy; M19.90 Unspecified osteoarthritis, unspecified site; G47.30 Sleep apnea, unspecified; Z90.49 Acquired absence of other specified parts of digestive tract; Z87.891 Personal history of nicotine dependence; Z86.59 Personal history of other mental and behavioral disorders
CPT/HCPCS: 88305; 45380; 43239; J2704; J2001

== ENCOUNTER → 2023-12-18 | Outpatient (CLI) | payer MEDICAID ==
[2023-12-18 16:11] LABS: INR 0.9 (<1.2); Partial Thromboplastin Time 24.8 sec (22.0-30.0); Prothrombin Time 10.4 sec (10.0-12.5)
[2023-12-18 19:47] LABS: HCT 43.4 % (39.6-50.0); HGB 14.2 g/dL (13.0-17.0); MCH 27.3 pg (27.0-32.0); MCHC 32.7 g/dL (32.0-37.0); MCV 83.5 FL (80.0-97.0); NRBC Per 100 WBC 0 X 10*3/uL (0.00-0.01); Platelet Count 207 X 10*3/uL (140-440); RDW 13.2 % (11.5-14.5)
[2023-12-18 21:36] LABS: ALT 20 U/L (10-49); AST 19 U/L (14-35); Albumin 4.6 g/dL (3.8-4.9); Alkaline Phosphatase 63 U/L (41-126); BUN/Creat Ratio 10.27 Ratio (12.00-20.00); Blood Urea Nitrogen 11.3 mg/dL (9.0-27.0); Calcium 9.5 mg/dL (8.7-10.3); Carbon Dioxide 22.1 mmol/L (21.6-31.8); Chloride 104 mmol/L (96-109); Chol/HDL Ratio 3.12 Ratio; Glucose 97 mg/dL (70-110); LDL Cholesterol,Calculated 80.2 mg/dL (0.0-131.0); Magnesium 1.9 mg/dL (1.5-2.4); Potassium 4.3 mmol/L (3.5-5.5); Sodium 140 mmol/L (135-145); Total Bilirubin 0.5 mg/dL (0.3-1.2); Total Protein 6.6 g/dL (6.2-8.2)
[2023-12-18 21:52] LABS: Prealbumin 24.6 mg/dL (18.0-42.0)
[2023-12-18 22:56] LABS: % Iron Saturation 23.56 (15.00-50.00); Ferritin 95.1 ng/mL (22.0-322.0); Iron 90 UG/DL (65-175); Total Iron Binding Capacity 382 UG/DL (228-460)
== END | disposition home or self-care (01) ==
LOC: LABWHC1 15:04
PROVIDERS: ATTEND Surgery Plastic and Reconstructive Surgery
DX: E66.01 Morbid (severe) obesity due to excess calories (principal); D50.8 Other iron deficiency anemias; E44.0 Moderate protein-calorie malnutrition; E44.1 Mild protein-calorie malnutrition; E55.9 Vitamin D deficiency, unspecified; K74.1 Hepatic sclerosis; N19 Unspecified kidney failure; T56.894A Toxic effect of other metals, undetermined, initial encounter
CPT/HCPCS: 36415; 80053; 80061; 82306; 82525; 82607; 82728; 82746; 83036; 83540; 83550; 83735; 83970; 84134; 84255; 84425; 84443; 84590; 84630; 85027; 85610; 85730

== ENCOUNTER → 2025-01-05 | Outpatient (CLI) | payer MEDICAID ==
[2025-01-05 16:10] VITALS: BP 117/70; PULSE 76; RESP 16; TEMP 97.8; BMI 29.9
--- NOTE | 2025-01-05 17:04 | P.BASOAP ---
Subjective Progress Note Date: 01/05/25 He has lost weight. He lost 10 pounds. 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 He comes in with reflux. Has vomit at night. He has delayed surgery due to no help at work. He has no longer falling out. He is using metformin. Eat eggs and solomon. He is very active. He is getting 90grams of protein. FU. Objective - Vital Signs Vital signs: Vital Signs Temp 97.8 F 01/05/25 16:07 Pulse 76 01/05/25 16:07 Resp 16 01/05/25 16:07 BP 117/70 01/05/25 16:07 Pulse Ox FiO2 Intake & Output 01/04/25 01/05/25 01/05/25 18:59 06:59 18:59 Weight 95.254 kg Assessment/Plan Plan: Date: 01/05/25 Initial Weight: 143.925 kg Initial BMI: 45.1 Current Weight: 95.254 kg Current BMI: 29.9 Type of Surgery: Vertical Sleeve Gastrectomy Total Volume in Band: Previous Volume: Volume Removed: Volume Added: Band Size:
== END ==
LOC: BARWHC3 15:20
PROVIDERS: ATTEND Surgery Plastic and Reconstructive Surgery
DX: E66.01 Morbid (severe) obesity due to excess calories (principal); Z87.891 Personal history of nicotine dependence; Z68.29 Body mass index [BMI] 29.0-29.9, adult
CPT/HCPCS: 99211